=== PATIENT | male | born 1960 | race Caucasian/White ===

== ENCOUNTER → 2018-02-25 | Outpatient (CLI) | payer OTHER ==
[~2018-02-25] MED LIST: ASPIRIN325 MG PO; ATORVASTATIN CA20 MG PO; BAYER ASPIRIN PO; CEFEPIME IV; CO Q-10 100 MG1 EACH PO; CUBICIN500 MG/VIA IV; D3 PO; EXFORGE HCT 101 EAC2 PO; FISH OIL PO; FUROSEMIDE40 MG PO; HUMALOG MI100 UNIT/4 SC; LEVAQUIN500 MG PO; LEVEMIR100 UNIT/1 SC; LYRICA200 MG PO; METFORMIN HCL500 M1 PO; METOPROLOL TART25 MG PO; NOVOLOG100 UNIT/1; OMEPRAZOLE40 MG PO; PANTOPRAZOLE SO40 MG PO; VANCOMYCIN1 GM/250 M IV; WELLBUTRIN PO
[2018-02-25 15:06] LABS: INR 0.91; PROTHROMBIN TIME 13.1 seconds (11.9-14.5)
[2018-02-25 16:05] LABS: CREATININE, SERUM 1.79 mg/dL (0.72-1.25)
== END ==
LOC: DX 14:25
PROVIDERS: ATTEND Internal Medicine Infectious Disease
DX: M86.071 Acute hematogenous osteomyelitis, right ankle and foot (principal)
CPT/HCPCS: 36415; 82565; 84520; 85049; 85610; 85730

== ENCOUNTER → 2018-03-04 | Day surgery (SDC) | payer OTHER ==
--- OUTSIDE RECORDS SUMMARY | 2018-03-03 08:22 | XMS REPORT | Clinical Summary ---
Author Author [facility] Address Unknown Phone Unavailable Care Team Providers Care Undercover Agent Name Role Phone Travon Gibbs MD PCP Allergies Active Allergy Reactions Severity Noted Date Comments Vancomycin Other (See Comments) High 09/07/2016 Piperacillin-Tazobactam Other (See Comments) High 09/07/2016 Current Medications Prescription Sig. Disp. Refills Start End Date Status Date atorvastatin (LIPITOR) 40 04/08/20 Active MG tablet 16 buPROPion SR (WELLBUTRIN 04/16/20 Active SR) 150 MG 12 hr tablet 16 FLUARIX QUAD 4455-3254, 02/05/20 Active PF, syringe vaccine 16 LEVEMIR FLEXTOUCH 100 INJECY 30 UNITS 5 02/27/20 Active unit/mL (3 mL) insulin SUBCUTANEOUSLY EVERY 16 pen MORNING AND 30 UNITS SUBCUTANEOUSLY EVERY NIGHT omeprazole (PriLOSEC) 40 04/08/20 Active MG capsule 16 LYRICA 200 mg capsule 04/18/20 Active 16 BD INSULIN SYRINGE USE DIRECTED FOR 5 03/17/20 Active ULTRA-FINE 1 mL 31 gauge INSULIN 16 x 15/64" syringe insulin syringe-needle BD Insulin Syringe Active U-100 (BD INSULIN SYRINGE Ultra-Fine 1 mL 31 gauge ULTRA-FINE) 1 mL 31 gauge x 15/64" x 15/64" syringe diazePAM (VALIUM) 5 MG diazepam 5 mg tablet Active tablet lancets (ONETOUCH DELICA OneTouch Delica Lancets Active LANCETS) 33 gauge misc 33 gauge blood sugar diagnostic OneTouch Ultra Test Active strips (ONETOUCH ULTRA strips TEST) strip test strips dapagliflozin-metformin Xigduo XR 5 mg-1,000 mg Active (XIGDUO XR) 5-1,000 mg tablet,extended release tablet, IR & ER, biphasic 24hr insulin degludec (TRESIBA Tresiba FlexTouch U-200 Active FLEXTOUCH U-200) 200 200 unit/mL (3 mL) unit/mL (3 mL) insulin subcutaneous insulin pen pen insulin ASPART (NovoLOG Novolog Flexpen 100 Active Flexpen) 100 unit/mL unit/mL subcutaneous insulin pen amLODIPine (NORVASC) 10 Take 10 mg by mouth Active mg tablet daily. valsartan (DIOVAN) 320 MG Take 320 mg by mouth Active tablet daily. meropenem 1 g in sodium Infuse 1 g into a venous 1 each 0 11/13/19 03/08/20 Discontin chloride 0.9 % MBP 100 mL catheter every 8 (eight) 17 17 ued IVPB hours. aspirin 81 mg chewable Chew 1 tablet (81 mg 30 tablet 2 03/08/20 04/07/20 tablet total) daily for 30 days. 17 17 Active Problems Problem Noted Date Acute osteomyelitis of left foot (HCC) 11/02/2016 Open wound of right foot 09/23/2016 Anemia 09/12/2016 Wound abscess 09/07/2016 Encounters Date Type Specialty Care Team Description 02/02/2018 [facility] Radiology Deisy Warren MD Closed nondisplaced Encounter transverse fracture of shaft of left tibia with routine healing 01/25/2018 Transcribe Access Deisy Warren MD Closed nondisplaced Orders transverse fracture of shaft of left tibia with routine healing (Primary Dx) 06/18/2017 Office Visit Wound Care Dale Lucio, DPMilton Ulcer of left foot, with fat layer exposed (Primary Dx) 06/16/2017 [facility] Radiology Dale Lucio DPMilton Ulcer of left heel, with Encounter fat layer exposed 06/16/2017 [facility] Radiology Dale Lucio DPM Ulcer of left heel, with Encounter fat layer exposed 05/17/2017 Procedure Pass Radiology 05/17/2017 Procedure Pass Radiology 05/17/2017 Transcribe Access Dale Lucio DPMilton Ulcer of left heel, with Orders fat layer exposed (Primary Dx) 03/04/2017 Anesthesia General Surgery Erik Montoya MD Event 03/04/2017 Procedure Pass General Surgery 03/04/2017 Surgery General Surgery Niraj Hall MD angiogram , Left Lower Extremity, aortagram, balloon angioplasty of SFA left leg 03/02/2017 Procedure Pass General Internal Medicine 03/01/2017 [facility] General Internal Medicine Marie Gutierrez Mik, Acute osteomyelitis of - Encounter DO left foot (Primary Dx) 03/08/2017 Hunter Melendez MD after 03/02/2017 Immunizations Name Dates Previously Given Next Due FLUCELVAX QUAD PF (0.5mL 03/05/2017 syringe) Family History Medical History Relation Name Comments Heart disease Mother Relation Name Status Comments Mother Social History Tobacco Use Types Packs/Day Years Used Date Former Smoker 2 27 Quit: 2006 Alcohol Use Drinks/Week oz/Week Comments No Sex Assigned at Date Recorded Not on file Last Filed Vital Signs Vital Sign Reading Time Taken Blood Pressure 163/84 03/08/2017 9:25 AM [employer] Pulse 86 03/08/2017 9:25 AM [employer] Temperature 36.2 C (97.2 F) 03/08/2017 9:25 AM [employer] Respiratory Rate 18 03/08/2017 9:25 AM [employer] GROUP [employer] Oxygen Saturation 99% 03/08/2017 9:25 AM [employer]ING [employer]ER Inhaled Oxygen - - Concentration Weight 98.3 kg (216 lb 12.8 oz) 03/08/2017 5:00 AM [employer]ING GROUP [employer] Height 190.5 cm (6' 3") 03/02/2017 3:25 PM [employer] Body Mass Index 27.1 03/08/2017 5:00 AM [employer]ING GROUP LE[employer]ER Plan of Treatment Health Maintenance Due Date Last Done Comments SHINGRIX VACCINE (#1) 2012 INFLUENZA VACCINE 11/24/2017 03/05/2017, 03/05/2017, 02/24/2014 COLON CANCER SCREENING 08/04/2026 08/04/2016 Implants Implanted Type Area Commercial Real Estate Attorney Device Expiration Model / Identifier Date Serial / Lot Device Vasclr Clsr Baln Cath 10ml Cardiovasc Right: CARDINAL 12/24/2018 [id number] / Lkng Syr 6fr 7fr [facility] [id number] Implants [id number] Implanted: Qty: 1 on 03/04/2017 by Niraj Hall MD Dressing Wnd 4x5in Mtrx 2lyr - Human Right: [employer]TE[employer] 12/24/2017 [id number] / [id number] Tissue Foot LIFESCIENCE / Implanted: Qty: 1 on 09/16/2016 by Implants RECON [id number] Foteh, Abeer Mufid, DPM 23 Graft Soft-Tissue Epifix 2x3cm - Human Left: Foot [employer] 07/25/2020 GS [id number] / [id number] - [id number] Tissue INC [id number] Implanted: Qty: 1 on 09/16/2016 by Implants [id number] / Dale Lucio, DPM [id number] Allograft Epifix Micronized 160mg - Human Right: [employer] 03/26/2021 EI [id number] / [id number] - [id number] Tissue Foot INC [id number] Implanted: Qty: 1 on 11/06/2016 by Implants [id number] / TirsoteDale jiangd, DPM [id number] Explanted Type Area Commercial Real Estate Attorney Device Expiration Model / Identifier Date Serial / Lot Catheter Angio Supercharger Repair Supervisor Ii 5fr Surgical Left: [facility] [id number] 0.038in 65cm Hf Contra-L - Implants; Groin INTERVENTION / [id number] Expanders; VASCULAR MARIA DEL CARMEN / Implanted: Extenders; Explanted: 03/04/2017 by Davy Hall MD (Quantity not on file) Wires Procedures Procedure Name Priority Date/Time Associated Diagnosis Comments CT LOWER EXTREMITY WO Routine 02/02/2018 Closed nondisplaced Results for this CONTRAST LEFT 12:51 PM CDT transverse fracture of procedure are in the shaft of left tibia with results section. routine healing GRAM STAIN Routine 06/18/2017 Results for this 4:35 PM [employer] procedure are in the results section. ANAEROBIC CULTURE Routine 06/18/2017 Results for this 4:35 PM [employer] procedure are in the results section. AEROBIC CULTURE Routine 06/18/2017 Results for this 4:35 PM [employer]ER procedure are in the results section. MRI LOWER EXTREMITY JOINT Routine 06/16/2017 Ulcer of left heel, with Results for this WO CONTRAST LEFT 9:26 AM ENG[employer]ERING [employer] LEADER fat layer exposed procedure are in the results section. MRI FOOT WO CONTRAST LEFT Routine 06/16/2017 Ulcer of left heel, with Results for this 9:25 AM ENG[employer]ING [employer] LE[employer]ER fat layer exposed procedure are in the results section. XR CHEST 1 VW PORTABLE STAT 03/08/2017 Results for this 8:49 AM ENG[employer]ERING GROUP LEADER procedure are in the results section. POC GLUCOSE Routine 03/08/2017 Results for this 6:47 AM [employer]ING [employer] LE[employer]ER procedure are in the results section. POC GLUCOSE Routine 03/07/2017 Results for this 9:08 PM [employer]ER procedure are in the results section. POC GLUCOSE Routine 03/07/2017 Results for this 4:14 PM [employer] LE[employer]ER procedure are in the results section. POC GLUCOSE Routine 03/07/2017 Results for this 12:45 PM [employer]ING [employer] LE[employer]ER procedure are in the results section. POC GLUCOSE Routine 03/07/2017 Results for this 6:34 AM ENG[employer]ERING GROUP LEADER procedure are in the results section. POC GLUCOSE Routine 03/06/2017 Results for this 9:10 PM [employer]ING GROUP LEADER procedure are in the results section. POC GLUCOSE Routine 03/06/2017 Results for this 4:02 PM [employer]ING [employer] LE[employer]ER procedure are in the results section. POC GLUCOSE Routine 03/06/2017 Results for this 11:13 AM ENG[employer]ERING GROUP LEADER procedure are in the results section. POC GLUCOSE Routine 03/06/2017 Results for this 7:27 AM ENG[employer]ERING GROUP LEADER procedure are in the results section. POC GLUCOSE Routine 03/05/2017 Results for this 8:12 PM ENG[employer]ERING GROUP LEADER procedure are in the results section. POC GLUCOSE Routine 03/05/2017 Results for this 3:32 PM ENG[employer]ERING GROUP LEADER procedure are in the results section. POC GLUCOSE Routine 03/05/2017 Results for this 11:39 AM ENGINEERING GROUP LEADER procedure are in the results section. POC GLUCOSE Routine 03/05/2017 Results for this 7:33 AM ENGINEERING GROUP LEADER procedure are in the results section. ZZESTIMATED GFR Routine 03/05/2017 Results for this 4:55 AM ENGINEERING GROUP LEADER procedure are in the results section. BASIC METABOLIC PANEL Routine 03/05/2017 Results for this 4:55 AM ENGINEERING GROUP LEADER procedure are in the results section. HC COMPLETE BLD COUNT Routine 03/05/2017 Results for this W/AUTO DIFF 4:55 AM ENG[employer]ERING GROUP LEADER procedure are in the results section. POC GLUCOSE Routine 03/04/2017 Results for this 8:14 PM [employer]ING [employer] LEADER procedure are in the results section. POC GLUCOSE Routine 03/04/2017 Results for this 6:34 PM ENG[employer]ING GROUP LEADER procedure are in the results section. POC GLUCOSE Routine 03/04/2017 Results for this 5:15 PM ENG[employer]ERING GROUP LEADER procedure are in the results section. CV HYBRID OR FLUOROSCOPY Routine 03/04/2017 Results for this 3:35 PM ENGINEERING GROUP LEADER procedure are in the results section. XR CHEST 1 VW PORTABLE Routine 03/04/2017 Results for this 2:37 PM [employer]ERING GROUP LEADER procedure are in the results section. POC GLUCOSE Routine 03/04/2017 Results for this 11:20 AM ENGINEERING GROUP LEADER procedure are in the results section. HC CATH DUAL LUMEN PICC Routine 03/04/2017 Results for this 11:19 AM ENG[employer]ERING GROUP LEADER procedure are in the results section. HC US GUIDED VASCULAR Routine 03/04/2017 Results for this ACCESS 11:19 AM ENG[employer]ERING GROUP LEADER procedure are in the results section. HC CVL PICC INSERT 5 YRS Routine 03/04/2017 Results for this OR > 11:19 AM ENG[employer]ERING GROUP LEADER procedure are in the results section. POC GLUCOSE Routine 03/04/2017 Results for this 7:21 AM ENG[employer]ERING GROUP LEADER procedure are in the results section. ZZESTIMATED GFR Routine 03/04/2017 Results for this 6:22 AM ENGINEERING GROUP LEADER procedure are in the results section. TYPE AND SCREEN Routine 03/04/2017 Results for this 6:22 AM ENG[employer]ERING GROUP LEADER procedure are in the results section. BASIC METABOLIC PANEL Routine 03/04/2017 Results for this 6:22 AM ENGINEERING GROUP LEADER procedure are in the results section. HC COMPLETE BLD COUNT Routine 03/04/2017 Results for this W/AUTO DIFF 6:22 AM ENGINEERING GROUP LEADER procedure are in the results section. PROTHROMBIN TIME WITH INR Routine 03/04/2017 Results for this 6:22 AM ENG[employer]ERING GROUP LEADER procedure are in the results section. PARTIAL THROMBOPLASTIN Routine 03/04/2017 Results for this TIME (PTT) 6:22 AM ENG[employer]ERING GROUP LEADER procedure are in the results section. ECG 12-LEAD Routine 03/04/2017 Results for this 4:34 AM ENGINEERING GROUP LEADER procedure are in the results section. POC GLUCOSE Routine 03/03/2017 Results for this 9:03 PM ENG[employer]ERING GROUP LEADER procedure are in the results section. POC GLUCOSE Routine 03/03/2017 Results for this 4:12 PM ENG[employer]ERING GROUP LEADER procedure are in the results section. POC GLUCOSE Routine 03/03/2017 Results for this 11:28 AM ENG[employer]ING GROUP LEADER procedure are in the results section. POC GLUCOSE Routine 03/03/2017 Results for this 7:25 AM ENG[employer]ING GROUP LEADER procedure are in the results section. ZZESTIMATED GFR Routine 03/03/2017 Results for this 6:37 AM ENG[employer]ERING GROUP LEADER procedure are in the results section. BASIC METABOLIC PANEL Routine 03/03/2017 Results for this 6:37 AM ENG[employer]ERING GROUP LEADER procedure are in the results section. HC COMPLETE BLD COUNT Routine 03/03/2017 Results for this W/AUTO DIFF 6:37 AM ENG[employer]ERING GROUP LEADER procedure are in the results section. HEMOGLOBIN A1C Routine 03/03/2017 Results for this 6:37 AM ENGINEERING GROUP LEADER procedure are in the results section. XR FOOT 3 VW BILATERAL Routine 03/02/2017 Results for this 9:21 PM [employer]ING [employer] LEADER procedure are in the results section. ANAEROBIC CULTURE Routine 03/02/2017 Results for this 8:59 PM [employer]ING [employer] LEADER procedure are in the results section. GRAM STAIN Routine 03/02/2017 Results for this 8:59 PM ENG[employer]ERING GROUP LEADER procedure are in the results section. AEROBIC CULTURE Routine 03/02/2017 Results for this 8:59 PM ENG[employer]ING [employer] LEADER procedure are in the results section. POC GLUCOSE Routine 03/02/2017 Results for this 8:36 PM [employer]ING [employer] LEADER procedure are in the results section. US DUPLEX ARTERIAL LOWER Routine 03/02/2017 Results for this EXTREMITY BILATERAL 5:48 PM [employer]ING [employer] LEADER procedure are in the results section. POC GLUCOSE Routine 03/02/2017 Results for this 3:32 PM [employer]ING [employer] LEADER procedure are in the results section. POC GLUCOSE Routine 03/02/2017 Results for this 12:09 PM ENG[employer]ERING GROUP LEADER procedure are in the results section. POC GLUCOSE Routine 03/02/2017 Results for this 7:22 AM ENGINEERING GROUP LEADER procedure are in the results section. MANUAL DIFFERENTIAL Routine 03/02/2017 Results for this 6:06 AM ENG[employer]ERING GROUP LEADER procedure are in the results section. ZZESTIMATED GFR Routine 03/02/2017 Results for this 6:06 AM ENG[employer]ERING GROUP LEADER procedure are in the results section. BASIC METABOLIC PANEL Routine 03/02/2017 Results for this 6:06 AM ENG[employer]ERING GROUP LEADER procedure are in the results section. CBC WITH PLATELET AND Routine 03/02/2017 Results for this DIFFERENTIAL 6:06 AM ENGINEERING GROUP LEADER procedure are in the results section. MRI FOOT WO CONTRAST LEFT STAT 03/02/2017 Results for this 3:59 AM ENGINEERING GROUP LEADER procedure are in the results section. LACTIC ACID LEVEL Timed 03/02/2017 Results for this 12:16 AM ENG[employer]ERING GROUP LEADER procedure are in the results section. after 03/02/2017 Results * CT Lower Extremity Wo Contrast Left (02/02/2018 12:51 PM) Narrative Performed At EXAMINATION:CT LOWER EXTREMITY WO CONTRAST LEFT HM [facility] CLINICAL HISTORY:S82.225D Nondisplaced transverse fracture of shaft of left tibiasubsequent encounter for closed fracture with routine healing, S82.225D TECHNIQUE: Multiple axial images of the right lower extremity were obtained without contrast. CT imaging was performed with iterative reconstruction technique and/or automated exposure control to reduce radiation dose. COMPARISON:MRI dated 06/16/2017 FINDINGS: CT imaging of the midfoot and hindfoot demonstrates external fixation device with pins in the calcaneus. The talus has either been resected or now has completely collapsed and is fragmented. Severe Charcot arthropathy of the hindfoot and midfoot. If an arthrodesis has been performed then no bony bridging is noted. Erosions, sclerosis and bony fragmentation may represent the sequelae of a neuropathic arthropathy. Periostitis of the distal tibia and fibula. Septic arthritis or osteomyelitis cannot be excluded. IMPRESSION: 1.External fixation device with resection of the talus or significant fragmentation that has progressed compared to the prior MRI dated 06/16/2017. 2.If an arthrodesis has been performed then no osseous union is identified. 3.Advanced and severe neuropathic Charcot arthropathy. Periostitis of the distal tibia and fibula is nonspecific and erosions, bony fragmentation and changes in the hindfoot and midfoot may be secondary to the Charcot arthropathy although osteomyelitis and infection cannot be excluded. [facility]-[id number] Procedure Note Hm Interface, Radiology Results Incoming - 02/02/2018 1:07 PM CDT EXAMINATION: CT LOWER EXTREMITY WO CONTRAST LEFT CLINICAL HISTORY: S82.225D Nondisplaced transverse fracture of shaft of left tibia subsequent encounter for closed fracture with routine healing, S82.225D TECHNIQUE: Multiple axial images of the right lower extremity were obtained without contrast. CT imaging was performed with iterative reconstruction technique and/or automated exposure control to reduce radiation dose. COMPARISON: MRI dated 06/16/2017 FINDINGS: CT imaging of the midfoot and hindfoot demonstrates external fixation device with pins in the calcaneus. The talus has either been resected or now has completely collapsed and is fragmented. Severe Charcot arthropathy of the hindfoot and midfoot. If an arthrodesis has been performed then no bony bridging is noted. Erosions, sclerosis and bony fragmentation may represent the sequelae of a neuropathic arthropathy. Periostitis of the distal tibia and fibula. Septic arthritis or osteomyelitis cannot be excluded. IMPRESSION: 1. External fixation device with resection of the talus or significant fragmentation that has progressed compared to the prior MRI dated 06/16/2017. 2. If an arthrodesis has been performed then no osseous union is identified. 3. Advanced and severe neuropathic Charcot arthropathy. Periostitis of the distal tibia and fibula is nonspecific and erosions, bony fragmentation and changes in the hindfoot and midfoot may be secondary to the Charcot arthropathy although osteomyelitis and infection cannot be excluded. [id number] Performing Organization Address City/[facility]/Zipcode Phone Number [facility] [address] [place] [address] * Aerobic culture (06/18/2017 4:35 PM) Only the most recent of 2 results within the time period is included. Aerobic culture isolate Mixed mariposa- more than 3 [facility] DEPARTMENT OF organisms isolated. PATHOLOGY AND Consider resubmitting specimen GENOMIC MEDICINE if clinically indicated. Comment: Specimen Information Specimen Source: Ulcer Specimen Site: Left Foot Specimen Ulcer Performing Organization Address [facility]/Zipcode Phone Number [facility] DEPARTMENT OF [address] [place] [address] PATHOLOGY AND GENOMIC MEDICINE * Gram stain (06/18/2017 4:35 PM) Only the most recent of 2 results within the time period is included. Gram stain isolate Many WBC's [facility] DEPARTMENT OF No organisms seen PATHOLOGY AND Comment: GENOMIC MEDICINE Specimen Information Specimen Source: Ulcer Specimen Site: Left Foot Specimen Ulcer Performing Organization Address [facility] Phone Number [facility] DEPARTMENT OF [address] [place] [id number] PATHOLOGY AND GENOMIC MEDICINE * Anaerobic culture (06/18/2017 4:35 PM) Only the most recent of 2 results within the time period is included. Anaerobic culture isolate No anaerobic organisms [facility] DEPARTMENT OF isolated. PATHOLOGY AND Comment: GENOMIC MEDICINE Specimen Information Specimen Source: Ulcer Specimen Site: Left Foot Specimen Ulcer Performing Organization Address [facility] [place] Number [facility] DEPARTMENT OF [address] [place] [address] PATHOLOGY AND GENOMIC MEDICINE * MRI Lower Extremity Joint Wo Contrast Left (06/16/2017 9:26 AM) Narrative Performed At EXAMINATION:MRI LOWER EXTREMITY JOINT WO CONTRAST LEFT HM [facility] CLINICAL HISTORY:L97.422 Non-pressure chronic ulcer of left heel and midfoot with fat layer exposed, L97.422 COMPARISON:None. TECHNIQUE:Multiplanar and multisequence T1 and T2-weighted images of the foot are submitted which were performed without gadolinium. IMPRESSION: 1.There is small amount of T2 weighted signal identified in the soft tissues inferior to the calcaneus at the level of a tiny calcaneal spur. This is immediately inferior to the plantar fascia. There is no evidence of plantar fascial thickening. This may correlate with the area of patient ulcer. There is no abnormal signal within the underlying calcaneus to indicate osteomyelitis. 2.There is a severe Charcot joint with a large ankle joint effusion. Because of the presence of effusion, septic joint cannot be excluded. Scattered abnormal signal throughout the tarsal bones is compatible with severe Charcot joint changes. 3.There is a soft tissue ulcer along the very medial inferomedial foot well seen on series 4 image 3. This fluid in this ulcer appears to connect with effusion and therefore the effusion may be infected. Small amount of subcutaneous edema is also noted. While the signal changes in the tarsal bones are compatible with neuropathy,osteomyelitis cannot be entirely excluded. A moderate amount of fluid signal is seen in the medial foot soft tissues. Whether this is infected or not cannot be ascertained. [id number] Procedure Note Hm Interface, Radiology Results Incoming - 06/18/2017 9:04 PM ENGINEERING GROUP LEADER EXAMINATION: MRI LOWER EXTREMITY JOINT WO CONTRAST LEFT CLINICAL HISTORY: L97.422 Non-pressure chronic ulcer of left heel and midfoot with fat layer exposed, L97.422 COMPARISON: None. TECHNIQUE: Multiplanar and multisequence T1 and T2-weighted images of the foot are submitted which were performed without gadolinium. IMPRESSION: 1. There is small amount of T2 weighted signal identified in the soft tissues inferior to the calcaneus at the level of a tiny calcaneal spur. This is immediately inferior to the plantar fascia. There is no evidence of plantar fascial thickening. This may correlate with the area of patient ulcer. There is no abnormal signal within the underlying calcaneus to indicate osteomyelitis. 2. There is a severe Charcot joint with a large ankle joint effusion. Because of the presence of effusion, septic joint cannot be excluded. Scattered abnormal signal throughout the tarsal bones is compatible with severe Charcot joint changes. 3. There is a soft tissue ulcer along the very medial inferomedial foot well seen on series 4 image 3. This fluid in this ulcer appears to connect with effusion and therefore the effusion may be infected. Small amount of subcutaneous edema is also noted. While the signal changes in the tarsal bones are compatible with neuropathy, osteomyelitis cannot be entirely excluded. A moderate amount of fluid signal is seen in the medial foot soft tissues. Whether this is infected or not cannot be ascertained. [id number] Performing Organization Address City/State/Zipcode Phone Number [facility] [address] [place] [address] * MRI Foot Wo Contrast Left (06/16/2017 9:25 AM) Only the most recent of 2 results within the time period is included. Narrative [facility] Procedure: MRI FOOT WO CONTRAST LEFT REFERRING PHYSICIAN: DALE LUCIO HISTORY: L9.422 Non-pressure chronic ulcer of left heel and midfoot with fat layer exposed, L9.422 COMPARISON: None TECHNIQUE: Multiplanar and multisequence were obtained of the left midfoot and forefoot without intravenous contrast. FINDINGS: Abnormal low T1 signal intensities are seen of the navicular bones and to a lesser extent along the medial aspect of the cuboid bone and at the much lesser extent at the base of the second metatarsal and third metatarsal. Destruction and abnormal T1 signal intensities are also seen of the navicular bone and of the talar head. Associated marrow edema is seen. Findings worrisome for osteomyelitis changes. Associated surrounding soft tissue swelling is also noted. Limited evaluation of the ligaments and tendons of the forefoot is unremarkable. IMPRESSION: Findings worrisome for osteomyelitis changes of the left foot, more significant involving the midfoot, as described in the body of the report. [id number] Procedure Note Interface, Radiology Results Incoming - 06/16/2017 9:49 AM ENGINEERING GROUP LEADER Procedure: MRI FOOT WO CONTRAST LEFT REFERRING PHYSICIAN: DALE LUCIO HISTORY: L9.422 Non-pressure chronic ulcer of left heel and midfoot with fat layer exposed, L97.422 COMPARISON: None TECHNIQUE: Multiplanar and multisequence were obtained of the left midfoot and forefoot without intravenous contrast. FINDINGS: Abnormal low T1 signal intensities are seen of the navicular bones and to a lesser extent along the medial aspect of the cuboid bone and at the much lesser extent at the base of the second metatarsal and third metatarsal. Destruction and abnormal T1 signal intensities are also seen of the navicular bone and of the talar head. Associated marrow edema is seen. Findings worrisome for osteomyelitis changes. Associated surrounding soft tissue swelling is also noted. Limited evaluation of the ligaments and tendons of the forefoot is unremarkable. IMPRESSION: Findings worrisome for osteomyelitis changes of the left foot, more significant involving the midfoot, as described in the body of the report. [id number] Performing Organization Address [facility] Facility[facility] Phone Number [facility] [address] [place] [address] * XR Chest 1 Vw Portable (03/08/2017 8:49 AM) Only the most recent of 2 results within the time period is included. Narrative Performed At EXAMINATION:XR CHEST 1 VW PORTABLE [facility] CLINICAL HISTORY:UVC Line Placement, TIP CONFIRMATION NO BLOOD RETURN XR CHEST 1 VW PORTABLEimages are submitted COMPARISON:03/04/2017 FINDINGS: The PICC line has the tip in the superior vena cava. There are changes of prior median sternotomy. The cardiac silhouette is normal in size. The lung zones are clear. Is no pleural effusion or pneumothorax. IMPRESSION: 1. The PICC line has the tip in the superior vena cava. 2. The lung zones are clear. [id number] Procedure Note Hm Interface, Radiology Results Incoming - 03/08/2017 8:54 AM ENGINEERING GROUP LEADER EXAMINATION: XR CHEST 1 VW PORTABLE CLINICAL HISTORY: UVC Line Placement, TIP CONFIRMATION NO BLOOD RETURN XR CHEST 1 VW PORTABLE images are submitted COMPARISON: 03/04/2017 FINDINGS: The PICC line has the tip in the superior vena cava. There are changes of prior median sternotomy. The cardiac silhouette is normal in size. The lung zones are clear. Is no pleural effusion or pneumothorax. IMPRESSION: 1. The PICC line has the tip in the superior vena cava. 2. The lung zones are clear. [facility]-[id number] Performing Organization Address [facility] Facilitycook Phone Number [facility] [address] [place] [address] * POC glucose (03/08/2017 6:47 AM) Only the most recent of 26 results within the time period is included. POC glucose 153 (H) 65 - 100 mg/dL [facility] DEPARTMENT OF Comment: PATHOLOGY AND Meter ID: [id number] GENOMIC MEDICINE Post Anesthesia Nurse: Susanna Sierra Performing Organization Address City/[facility]/Zipcode Phone Number [facility] DEPARTMENT OF [address] [place] [address] PATHOLOGY AND GENOMIC MEDICINE * Estimated GFR (03/05/2017 4:55 AM) Only the most recent of 4 results within the time period is included. GFR Non Af Amer 88 mL/min/1.73 m2 [facility] DEPARTMENT OF PATHOLOGY AND GENOMIC MEDICINE GFR Af Amer >90 mL/min/1.73 m2 [facility] DEPARTMENT OF Comment: PATHOLOGY AND Chronic kidney disease: <60 GENOMIC MEDICINE mL/min/1.73m2 Kidney failure: <15 mL/min/1.73m2 The estimated GFR is calculated from the IDMS-traceable Modification of Diet in Renal Disease Equation. The accuracy of the calculation is poor when the creatinine is normal. Calculated values >90 mL/min/1.73m2 are not reported. This equation has not been validated in children (<18 years), women, the elderly (>70 years), or ethnic groups other than Caucasians and Americans. Specimen Plasma specimen Performing Organization Address City/State/Zipcode Phone Number [place] [phone] [place] [address] PATHOLOGY AND [facility]ICINE * CBC with platelet and differential (03/05/2017 4:55 AM) Only the most recent of 4 results within the time period is included. WBC 8.1 4.2 - 11.0 k/uL [facility] DEPARTMENT OF PATHOLOGY AND GENOMIC MEDICINE RBC 3.80 (L) 4.04 - 5.86 m/uL [facility] PATHOLOGY AND GENOMIC MEDICINE HGB 10.2 (L) 13.0 - 17.3 g/dL [facility] PATHOLOGY AND GENOMIC MEDICINE HCT 30.4 (L) 34.0 - 45.0 % [facility] DEPARTMENT PATHOLOGY AND GENOMIC MEDICINE MCV 80.0 80.0 - 98.0 fL [facility] DEPARTMENT OF PATHOLOGY AND GENOMIC MEDICINE MCH 26.8 (L) 27.0 - 34.0 pg [facility] DEPARTMENT OF PATHOLOGY AND GENOMIC MEDICINE MCHC 33.6 31.5 - 36.5 g/dL [facility] DEPARTMENT PATHOLOGY AND GENOMIC MEDICINE RDW - SD 43.2 37.0 - 51.0 fL [facility] DEPARTMENT PATHOLOGY AND GENOMIC MEDICINE MPV 9.2 7.4 - 10.4 fL [facility] DEPARTMENT OF PATHOLOGY AND GENOMIC MEDICINE Platelet count 403 (H) 150 - 400 k/uL [facility] DEPARTMENT PATHOLOGY AND GENOMIC MEDICINE Nucleated RBC 0.00 /100 WBC [facility] DEPARTMENT OF PATHOLOGY AND GENOMIC MEDICINE Neutrophils 69.0 (H) 36.0 - 66.0 % [facility] DEPARTMENT OF PATHOLOGY AND GENOMIC MEDICINE Lymphocytes 19.1 (L) 24.0 - 44.0 % [facility] DEPARTMENT OF PATHOLOGY AND GENOMIC MEDICINE Monocytes 9.1 (H) 0.0 - 6.0 % [facility] DEPARTMENT OF PATHOLOGY AND GENOMIC MEDICINE Eosinophils 1.7 0.0 - 6.0 % [facility] DEPARTMENT OF PATHOLOGY AND GENOMIC MEDICINE Basophils 0.4 0.0 - 1.2 % [facility] DEPARTMENT OF PATHOLOGY AND GENOMIC MEDICINE Immature granulocytes 0.7 0.0 - 1.0 % [facility] OF PATHOLOGY AND GENOMIC MEDICINE Specimen Blood Performing Organization Address City/[facility] Facilitycode Phone Number [address] [place] [address] PATHOLOGY AND GENOMIC MEDICINE * Basic metabolic panel (03/05/2017 4:55 AM) Only the most recent of 4 results within the time period is included. Sodium 137 135 - 150 mEq/L [facility] DEPARTMENT OF PATHOLOGY AND GENOMIC MEDICINE Potassium 3.4 (L) 3.5 - 5.0 mEq/L [facility] DEPARTMENT OF PATHOLOGY AND GENOMIC MEDICINE Chloride 101 100 - 109 mEq/L [facility] DEPARTMENT OF PATHOLOGY AND GENOMIC MEDICINE CO2 29 24 - 32 mmol/L [facility] DEPARTMENT OF PATHOLOGY AND GENOMIC MEDICINE Anion gap 7 7 - 15 mEq/L [facility] DEPARTMENT OF Comment: PATHOLOGY AND Starting from July [facility] MEDICINE , anion gap calculation no longer incorporates potassium. Please note the change. BUN 8 7 - 18 mg/dL [facility] DEPARTMENT OF PATHOLOGY AND GENOMIC MEDICINE Creatinine 0.9 0.8 - 1.5 mg/dL [facility] DEPARTMENT OF PATHOLOGY AND GENOMIC MEDICINE Glucose 112 (H) 65 - 100 mg/dL [facility] DEPARTMENT OF PATHOLOGY AND GENOMIC MEDICINE Calcium 8.2 (L) 8.6 - 10.7 mg/dL [facility] DEPARTMENT OF PATHOLOGY AND GENOMIC MEDICINE Specimen Plasma specimen Performing Organization Address City/[facility] Facilitycode Phone Number [address] [place] [address] PATHOLOGY AND GENOMIC MEDICINE * Hybrid or fluoroscopy (03/04/2017 3:35 PM) Narrative Performed At See operative report for the same day * PICC INSERTION (03/04/2017 11:19 AM) Narrative Performed At Daphne Flanagan 03/04/2017 11:19 AM PICC insertion Date/Time: 03/04/2017 10:45 AM Performed by: DAPHNE FLANAGAN Authorized by: HUNTER MELENDEZ Consent: Consent obtained:Verbal and written Consent given by:Patient Risks discussed: arterial puncture, incorrect placement, nerve damage, bleeding, infection, superficial thrombus and deep vein thrombus Alternatives discussed:No treatment, delayed treatment and alternative treatment [place] protocol: Procedure explained and questions answered to patient or proxy's satisfaction: yes Relevant documents present and verified: yes Test results available and properly labeled: yes Imaging studies available: yes Required blood products, implants, devices, and special equipment available: yes Site/side marked: yes Immediately prior to procedure, a time out was called: yes Patient identity confirmed:Verbally with patient, arm band, provided demographic data and hospital-assigned identification number Pre-procedure details: Hand hygiene: Hand hygiene performed prior to insertion Sterile barrier technique: All elements of maximal sterile technique followed Skin preparation:ChloraPrep Skin preparation agent: Skin preparation agent completely dried prior to procedure Anesthesia (see MAR for exact dosages): Anesthesia method:Local infiltration Local anesthetic:Lidocaine 1% w/o epi Route of administration:Subcutaneous PICC Line Placement Details (Will create an LDA): Extremity Cirumference Upper (cm):43 Extremity Circumference Forearm (cm):30 Extremity Circumference Site:35 Patient position:Flat Vessel Size (mm):4 Indication:Known mcc IV therapy Location:Right basilic Site selection rationale:Dominant arm, hx of PICCs, last placed in left arm Device Type:Valved Catheter size:5 Fr PICC Characteristics: Catheter Brand:PowerPICC Catheter with Sherlock 3 CG Tip Positioning System External Catheter Length (cm):0 Internal Catheter Length (cm):44 Total Catheter Length (cm):44 Catheter Lot Number:[id number] Catheter Expiration Date:02/23/1918 Micro-Introducer Lot Number:[id number] Micro-Introducer Expiration Date:02/23/2017 Procedure Details: Landmarks identified: yes Ultrasound guidance: yes Sterile ultrasound techniques: Sterile gel and sterile probe covers were used Number of attempts:1 Number of PICC kits used during procedure:1 Purpose of procedure:PICC Placement Successful PICC Placement: Yes Patency/Placement:Flushes without difficulty, flushed with 10 mL normal saline, positive blood return and injection cap placed (3 CG CONFIRMATION) PICC placed utlizing ultrasound-guided Modified Seldinger Technique: Yes Dressing/Securement:Gauze applied, catheter securement device and transparent semipermeable dressing Blood Loss Amount:Less than 20 mL Post-Procedure Details: Post-procedure:Dressing applied Name of provider who confirmed tip placement::Daphne Flanagan RN, PICC nurse confirmed with 3 CG technology Patient tolerance of procedure:Tolerated well, no immediate complications Comments: Difficulty placing micro-introducer (vein dilator) into the vein. Pt with hx of multiple PICCs, could be scar tissue. Otherwise no complications noted. Pt denied pain/discomfort. Teaching performed on PICC with clamps. Pt able to clamp and unclamp. Pt demonstrated and verbalized understanding. Patient with wallet care and PICC nurse extension for any home questions that may arise. Report to Lorene Aponte RN, patient's primary bedside nurse. * Partial thromboplastin time, activated (03/04/2017 6:22 AM) PTT 33.2 23.0 - 36.0 sec [facility] DEPARTMENT OF Comment: PATHOLOGY AND PTT therapeutic range for GENOMIC MEDICINE unfractionated heparin is 61.0-112.0 seconds which corresponds to Anti-Xa 0.3-0.7 U/ml. Note:Change in Panic Value The PTT Panic Value is changing from 110 sec. to 100 sec. due to new instrumentation and reagents. Correlation studies have been performed to validate this result. Specimen Blood Performing Organization Address City/[facility] Facilitycode Phone Number [facility] [address] [facility] [place] [id number] PATHOLOGY AND [facility] MEDICINE * Prothrombin time with INR (03/04/2017 6:22 AM) Prothrombin time 14.0 12.0 - 15.0 sec [facility] DEPARTMENT OF PATHOLOGY AND GENOMIC MEDICINE INR 1.07 0.92 - 1.12 [facility] DEPARTMENT OF Comment: PATHOLOGY AND For patients on anticoagulant GENOMIC MEDICINE therapy, reference ranges below: Indication: INR Value Treatment of Venous Thrombosis, 2.0-3.0 pulmonary emboli, or prophylaxis of a venous thrombosis, or systemic emboli. High dose, high risk patients 3.0-4.5 with mechanical valves. NOTE:INR values over 3.0 are sometimes associated with gastrointestinal hemorrhage, especially values over 4.0. Specimen Blood Performing Organization Address City/[facility]/Zipcode Phone Number [facility] [address] [place] [address] PATHOLOGY AND [facility] MEDICINE * Type and screen (03/04/2017 6:22 AM) ABO grouping A [facility] DEPARTMENT OF PATHOLOGY AND GENOMIC MEDICINE Rh type POS [facility] DEPARTMENT OF PATHOLOGY AND GENOMIC MEDICINE Antibody screen (gel) NEG [facility] DEPARTMENT OF PATHOLOGY AND GENOMIC MEDICINE Specimen Blood Performing Organization Address City/[facility] Phone Number [facility] DEPARTMENT OF [address] [place] [address] PATHOLOGY AND GENOMIC MEDICINE * ECG 12 lead (03/04/2017 4:34 AM) Ventricular rate 72 [facility] Atrial rate 72 [facility] NV interval 152 [facility] QRSD interval 88 [facility] QT interval 404 [facility] QTC interval 442 [facility] P axis 1 45 [facility] QRS axis 1 -12 [facility] T wave axis -56 [facility] EKG impression Normal sinus rhythm-Inferior [facility] infarct (cited on or before 08-SEP-2016)-Cannot rule out Anterior infarct , age undetermined-ST & T wave abnormality, consider lateral ischemia-Prolonged QT-Abnormal ECG-In automated comparison with ECG of 02-NOV-2016 14:42,-T wave inversion now evident in Inferior leads- Performing Organization Address City/[facility] Phone Number [facility] MUSE [address] [place] [address] * Hemoglobin A1c (03/03/2017 6:37 AM) Hemoglobin A1C 5.9 4.0 - 6.0 % [facility] DEPARTMENT OF Comment: PATHOLOGY AND GENOMIC MEDICINE Less than 6% - Goal of therapy for Type II Diabetes Less than 7%-Goal of therapy for Type I Diabetes Less than 8%-Accepta ble control for Type I or Type II Diabetes Greater than 8%-Unacceptabl e control; action indicated. 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 The talonavicular and navicular cuneiform joints are unremarkable with no erosions. Calcification is present in the anterior and posterior tibial arteries. There are no signs of a foreign body. The proximal metatarsal remnants are shorter when compared to the foot x-ray from 11/06/2016, but otherwise unremarkable. Left foot: The arch is fallen with degenerative narrowing of the talar tarsal joints. There is dorsal subluxation of the great toe. There is pressure erosion from the distal tibia articular surface presentinto the posterior dorsal aspect of the talus and dorsal cortex of the os calcis. Small degenerative intrusion cysts are present in the cortical surface of the dorsal aspect and rostrum of the talus. The navicular bone is not recognizable. There is lateral subluxation of cuneiform and cuboid bones. 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 There is osteolysis of the distal first metatarsal articular surface but no plain film evidence of acute osteomyelitis. 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 The talonavicular and navicular cuneiform joints are unremarkable with no erosions. Calcification is present in the anterior and posterior tibial arteries. There are no signs of a foreign body. The proximal metatarsal remnants are shorter when compared to the foot x-ray from 11/06/2016, but otherwise unremarkable. Left foot: The arch is fallen with degenerative narrowing of the talar tarsal joints. There is dorsal subluxation of the great toe. There is pressure erosion from the distal tibia articular surface present into the posterior dorsal aspect of the talus and dorsal cortex of the os calcis. Small degenerative intrusion cysts are present in the cortical surface of the dorsal aspect and rostrum of the talus. The navicular bone is not recognizable. There is lateral subluxation of cuneiform and cuboid bones. 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 There is osteolysis of the distal first metatarsal articular surface but no plain film evidence of acute osteomyelitis. [facility]-[id number] Performing Organization Address City/State/Zipcode Phone Number [facility] [address] [place] [address] * PV duplex arterial lower extremity (03/02/2017 5:48 PM) Narrative Performed At EXAM: Left lower extremity arterial Doppler [facility] HISTORY: pad TECHNIQUE: Real-time as well as pulsed and color Doppler evaluation of left common femoral, femoral, popliteal, posterior tibial, anterior tibial, and dorsalis pedis arteries are evaluated. The examination includes a full duplex Doppler scan of the blood vessels (real-time P mode grayscale, Doppler spectral analysis, and Doppler color flow imaging). COMPARISON: 09/10/2016 IMPRESSION: 1. There is extensive calcified atherosclerotic plaque throughout the interrogated arteries. 2. Significant velocity gradients are in the left superficial femoral artery and popliteal artery suggesting hemodynamically significant stenoses in these locations. 3. Monophasic waveforms are seen throughout the interrogated arteries raising the possibility of inflow stenosis more proximally, outside the scope of this study. Further evaluation with a CTA of the pelvis with bilateral lower extremity runoff recommended for better characterization. FINDINGS: LEFT LEG: PEAK SYSTOLIC VELOCITIES ARE FOLLOWS: COMMON FEMORAL:152.49 cm/s FEMORAL: Proximal: 54.12 cm/s Mid:60.5 8 cm/s Distal:146.3 cm/s POPLITEAL: Proximal: 84.99 cm/s Mid:130. 12 cm/s Distal: 46.27 cm/s POSTERIOR TIBIAL: Proximal: 52.54 cm/s Mid:50.9 7 cm/s Distal:32.6 cm/s A NTERIOR TIBIAL: Proximal:73.67 cm/s Mid:60.2 7 cm/s Distal: 29.52 cm/s DORSALIS PEDIS:45.86 cm/s DOPPLER WAVEFORMS: COMMON FEMORAL: Monophasic FEMORAL Proximal: Monophasic Mid: Monophasic Distal: Monophasic POPLITEAL Proximal: Monophasic Mid: Monophasic Distal: Monophasic POSTERIOR TIBIAL Proximal: Monophasic Mid: Monophasic Distal: Monophasic ANTERIOR TIBIAL Proximal: Monophasic Mid: Monophasic Distal: Monophasic DORSALIS PEDIS: Monophasic [facility]-[id number] Procedure Note Interface, Radiology Results Incoming - 03/02/2017 6:02 PM ENGINEERING GROUP LEADER EXAM: Left lower extremity arterial Doppler HISTORY: pad TECHNIQUE: Real-time as well as pulsed and color Doppler evaluation of left common femoral, femoral, popliteal, posterior tibial, anterior tibial, and dorsalis pedis arteries are evaluated. The examination includes a full duplex Doppler scan of the blood vessels (real-time P mode grayscale, Doppler spectral analysis, and Doppler color flow imaging). COMPARISON: 09/10/2016 IMPRESSION: 1. There is extensive calcified atherosclerotic plaque throughout the interrogated arteries. 2. Significant velocity gradients are in the left superficial femoral artery and popliteal artery suggesting hemodynamically significant stenoses in these locations. 3. Monophasic waveforms are seen throughout the interrogated arteries raising the possibility of inflow stenosis more proximally, outside the scope of this study. Further evaluation with a CTA of the pelvis with bilateral lower extremity runoff recommended for better characterization. FINDINGS: LEFT LEG: PEAK SYSTOLIC VELOCITIES ARE FOLLOWS: COMMON FEMORAL: 152.49 cm/s FEMORAL: Proximal: 54.12 cm/s Mid: 60.58 cm/s Distal: 146.3 cm/s POPLITEAL: Proximal: 84.99 cm/s Mid: 130.12 cm/s Distal: 46.27 cm/s POSTERIOR TIBIAL: Proximal: 52.54 cm/s Mid: 50.97 cm/s Distal: 32.6 cm/s ANTERIOR TIBIAL: Proximal: 73.67 cm/s Mid: 60.27 cm/s Distal: 29.52 cm/s DORSALIS PEDIS: 45.86 cm/s DOPPLER WAVEFORMS: COMMON FEMORAL: Monophasic FEMORAL Proximal: Monophasic Mid: Monophasic Distal: Monophasic POPLITEAL Proximal: Monophasic Mid: Monophasic Distal: Monophasic POSTERIOR TIBIAL Proximal: Monophasic Mid: Monophasic Distal: Monophasic ANTERIOR TIBIAL Proximal: Monophasic Mid: Monophasic Distal: Monophasic DORSALIS PEDIS: Monophasic [facility]-[id number] Performing Organization Address City/State/Zipcode Phone Number [facility] [address] [place] [address] * Manual differential (03/02/2017 6:06 AM) Manual differential PERFORMED [facility] DEPARTMENT OF PATHOLOGY AND GENOMIC MEDICINE Neutrophils 56.0 36.0 - 66.0 % [facility] DEPARTMENT OF PATHOLOGY AND GENOMIC MEDICINE Lymphocytes 35.0 24.0 - 44.0 % [facility] DEPARTMENT OF PATHOLOGY AND GENOMIC MEDICINE Monocytes 4.0 0.0 - 6.0 % [facility] DEPARTMENT OF PATHOLOGY AND GENOMIC MEDICINE Eosinophils 3.0 0.0 - 6.0 % [facility] DEPARTMENT OF PATHOLOGY AND GENOMIC MEDICINE Basophils 2.0 (H) 0.0 - 1.2 % [facility] DEPARTMENT OF PATHOLOGY AND GENOMIC MEDICINE Metamyelocytes 0 0 - 1 % [facility] DEPARTMENT OF PATHOLOGY AND GENOMIC MEDICINE Promyelocytes 0 0 - 1 % [facility] DEPARTMENT OF PATHOLOGY AND GENOMIC MEDICINE Platelet slide review Nora adequate [facility] DEPARTMENT OF PATHOLOGY AND GENOMIC MEDICINE Performing Organization Address City/[facility] Phone Number [place] [address] [place] [address] PATHOLOGY AND GENOMIC MEDICINE * Lactic acid level (03/02/2017 12:16 AM) Lactic acid 3.5 (HH) 0.5 - 2.2 mmol/L [facility] DEPARTMENT OF Comment: PATHOLOGY AND Results called to and read GENOMIC MEDICINE back by TIM ODOM RN AT 00:56 03/02/2017 BY LB. Specimen Blood Performing Organization Address City/[facility]/Zipcode Phone Number [place] [phone] [place] [address] PATHOLOGY AND GENOMIC MEDICINE after 03/02/2017 Insurance Payer Benefit Subscriber ID Type Phone Address Plan / Group AETNA AETNA xxxxxxxxxx HMO HMO,POS,EP O, MC/EC
--- OUTSIDE RECORDS SUMMARY | 2018-03-03 08:22 | XMS REPORT | Clinical Summary ---
Author Author [facility] Address Unknown Phone Unavailable Care Team Providers Care Rock Breaker Name Role Phone Bernie Travonmichael Ovalle PCP Allergies Comments Active Allergy Reactions Severity Noted Date Per patient causes anemia when taken with vancomycin Piperacillin-Tazobactam Other (See 06/30/2017 Comments) Medications End Date Status Medication Sig Dispensed Refills Start Date Active atorvastatin (LIPITOR) 40 Take 40 mg by 0 MG tablet mouth daily. Active omeprazole (PRILOSEC) 40 Take 40 mg by 0 MG capsule mouth daily. Active buPROPion (WELLBUTRIN) 75 Take 75 mg by 0 MG tablet mouth 2 (two) times daily. Active metoprolol (LOPRESSOR) 25 Take 25 mg by 0 MG tablet mouth 2 (two) times daily. Active furosemide (LASIX) 20 MG Take 10 mg by 0 tablet mouth 2 (two) times daily. Active pregabalin (LYRICA) 200 Take 200 mg 0 MG capsule by mouth 2 (two) times daily. Active insulin aspart (NOVOLOG) Inject 0 100 unit/mL injection subcutaneousl y 3 (three) times daily before meals. Active [employer] ASPIRIN Take 81 mg by 0 ORAL mouth . Active omega-3 fatty acids-fish Take 2 g by 0 oil 340-1,000 mg Cap per mouth 2 (two) capsule times daily. Active jvTZUUGsrw-xpkwmqvtp-oldc Take by mouth 0 iazid 10-320-25 mg Tab daily. Active INSULIN DETEMIR (LEVEMIR Inject 60 0 SUBQ) Units subcutaneousl y nightly. Active DAPAGLIFLOZIN/METFORMIN Take 1 tablet 0 HCL (XIGDUO XR ORAL) by mouth 2 (two) times daily . Active ciprofloxacin HCl (CIPRO) Take 500 mg 0 500 MG tablet by mouth daily. Active doxycycline (VIBRA-TABS) Take 100 mg 0 100 MG tablet by mouth daily. 07/29/2017 Discontinued ciprofloxacin HCl (CIPRO) Take 500 mg 0 500 MG tablet by mouth 2 (two) times daily. 08/18/2017 acetaminophen-codeine Take 1 tablet 60 tablet 0 (TYLENOL #3) 300-30 mg by mouth 8 per tablet every 4 (four) hours as needed for up to 10 days. 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 11/10/2017 Chronic osteomyelitis involving ankle and foot, left 11/10/2017 Septic arthritis of foot 07/31/2017 Diabetic neurogenic arthropathy 06/30/2017 Ulcer of lower extremity due to diabetes mellitus 06/30/2017 Chronic osteomyelitis of left foot 06/30/2017 Abscess of bursa, left ankle and foot (CODE) 06/30/2017 Encounters Care Team Description Date Type Specialty Deisy Warren MD ARTHRODESIS,ANKLE 11/10/2017 Surgery Demetrius Green MD 11/10/2017 Anesthesia Event Deisy Warren MD 11/10/2017 Hospital Encounter Deisy Warren MD DEBRIDEMENT/I&D,WOUND EXTREMITY LOWER 08/05/2017 Surgery Ramin Sanchez MD 08/05/2017 Anesthesia Event Juliano Angel MD PERIPHERAL ANGIOS / AORTOGRAM 08/02/2017 Surgery Deisy Warren MD DEBRIDEMENT/I&D,WOUND EXTREMITY LOWER 08/02/2017 Surgery Shey Franco MD 08/02/2017 Anesthesia Event 08/01/2017 Orders Only General Internal Medicine Kecia Richardson MD 07/29/2017 Hospital General Internal Medicine - Encounter 08/08/2017 Deisy Warren MD I&D,BONE FOOT 06/30/2017 Surgery Shlomo Kent MD 06/30/2017 Anesthesia Event Deisy Warren MD 06/30/2017 Hospital Encounter 06/30/2017 Orders Only General Internal Medicine after 03/02/2017 Social History Date Tobacco Use Types Packs/Day Years Used Quit: 06/25/2007 Former Smoker 2 Smokeless Tobacco: Never Used Alcohol Use Drinks/Week oz/Week Comments No Sex Assigned at Date Recorded Not on file Industry Job Start Date Occupation Not on file Not on file Not on file Travel End Travel History Travel Start No recent travel history available. Last Filed Vital Signs Time Taken Vital Sign Reading 11/10/2017 11:25 AM CDT Blood Pressure 132/70 11/10/2017 11:25 AM CDT Pulse 82 11/10/2017 10:26 AM CDT Temperature 36.9 C (98.4 F) 11/10/2017 11:25 AM CDT Respiratory Rate 19 11/10/2017 11:25 AM CDT Oxygen Saturation 97% - Inhaled Oxygen - Concentration 11/10/2017 6:27 AM CDT Weight 102.1 kg (225 lb) 11/10/2017 6:27 AM CDT Height 190.5 cm (6' 3") 11/10/2017 6:27 AM CDT Body Mass Index 28.12 Plan of Treatment Not on file Implants Device Identifier Shelf Expiration Date Model / Serial / Lot Implanted Type Area Manufactur er [id number] / / Schanz Screw 5.0 Mm X 175 Mm Fracture/F Left: Ankle MALA Implanted: Qty: 4 on 11/10/2017 by Deisy Sandoval MD [id number] / / Quick Connect X-Short Fracture/F Left: Ankle MALA Implanted: Qty: 4 on 11/10/2017 by Deisy Sandoval MD [id number] / / Quick Connect Short Fracture/F Left: Ankle MALA Implanted: Qty: 2 on 11/10/2017 by Deisy Sandoval MD [id number] / / Nut Fracture/F Left: Ankle MALA Implanted: Qty: 4 on 11/10/2017 by Deisy Sandoval MD [id number] / / 50 Mm Protective Pin Cap Fracture/F Left: Ankle MALA Implanted: Qty: 4 on 11/10/2017 by Deisy Sandoval MD [id number] / / Schanz Screw [place] Fracture/F Left: Ankle MALA Implanted: Qty: 4 on 11/10/2017 by Deisy Sandoval MD [id number] / / [place] Wire Left: Ankle Synthes Implanted: Qty: 9 on 08/05/2017 by Deisy Warren MD [id number] / / Smooth Wire Left: Ankle Synthes Implanted: Qty: 1 on 08/05/2017 by Deisy Warren MD Device Identifier Shelf Expiration Date Model / Serial / Lot Explanted Type Area Manufactur er [id number] / / Smooth Wire Ankle Synthes Explanted: Qty: 1 on 08/05/2017 [id number] / / [place] Wire Left: Ankle Synthes Explanted: Qty: 1 on 08/05/2017 Procedures Comments Procedure Name Priority Date/Time Associated Diagnosis POCT-GLUCOSE METER Routine 11/10/2017 11:15 AM CDT POCT-GLUCOSE METER Routine 11/10/2017 10:33 AM CDT PROCEDURE W/ C-ARM 11/10/2017 Chronic osteomyelitis of 8:00 AM CDT ankle and foot, left (HCC) 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 ([facility]) Special Needs MINI C-ARM, SUPINE/HIN DFOOT POSITIONIN G AND SYNTHES RING FIXATER (NEW) SYNTHES (ROSSANA) CONFIRMED 11/09 OSTEOTOMY,FIBULA 11/10/2017 Chronic osteomyelitis of 8:00 AM CDT ankle and foot, left (HCC) 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 ([facility]) Special Needs MINI C-ARM, SUPINE/HIN DFOOT POSITIONIN G AND SYNTHES RING FIXATER (NEW) SYNTHES (ROSSANA) CONFIRMED 11/09 REVISION,EXTERNAL FIXATOR 11/10/2017 Chronic osteomyelitis of 8:00 AM CDT ankle and foot, left (HCC) 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 ([facility]) Special Needs MINI C-ARM, SUPINE/HIN DFOOT POSITIONIN G AND SYNTHES RING FIXATER (NEW) SYNTHES (ROSSANA) CONFIRMED 11/09 I&D,BONE FOOT 11/10/2017 Chronic osteomyelitis of 8:00 AM CDT ankle and foot, left (HCC) 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 ([facility]) Special Needs MINI C-ARM, SUPINE/HIN DFOOT POSITIONIN G AND SYNTHES RING FIXATER (NEW) SYNTHES (ROSSANA) CONFIRMED 11/09 ARTHRODESIS,FOOT 11/10/2017 Chronic osteomyelitis of 8:00 AM CDT ankle and foot, left (HCC) 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 ([facility]) Special Needs MINI C-ARM, SUPINE/HIN DFOOT POSITIONIN G AND SYNTHES RING FIXATER (NEW) SYNTHES (ROSSANA) CONFIRMED 11/09 ARTHRODESIS,ANKLE 11/10/2017 Chronic osteomyelitis of 8:00 AM CDT ankle and foot, left (HCC) 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 (HCC) Special Needs MINI C-ARM, SUPINE/HIN DFOOT POSITIONIN G AND SYNTHES RING FIXATER (NEW) SYNTHES (ROSSANA) CONFIRMED 11/09 POCT-GLUCOSE METER Routine 11/10/2017 7:08 AM CDT POCT-GLUCOSE METER Routine 11/10/2017 6:30 AM CDT RHYTHM STRIP - SCAN 08/10/2017 10:22 AM CDT CARDIAC CATH REPORT - 08/10/2017 SCAN 10:22 AM CDT POCT-GLUCOSE METER Routine 08/08/2017 5:01 PM CDT POCT-GLUCOSE METER Routine 08/08/2017 11:43 AM CDT VANCOMYCIN LEVEL, TROUGH Timed 08/08/2017 8:38 AM CDT POCT-GLUCOSE METER Routine 08/08/2017 6:21 AM CDT BUN AND CREATININE Routine 08/08/2017 4:52 AM CDT POCT-GLUCOSE METER Routine 08/07/2017 8:37 PM CDT POCT-GLUCOSE METER Routine 08/07/2017 5:13 PM CDT POCT-GLUCOSE METER Routine 08/07/2017 11:28 AM CDT POCT-GLUCOSE METER Routine 08/07/2017 8:58 AM CDT POCT-GLUCOSE METER Routine 08/07/2017 6:31 AM CDT POCT-GLUCOSE METER Routine 08/06/2017 9:18 PM CDT POCT-GLUCOSE METER Routine 08/06/2017 4:37 PM CDT POCT-GLUCOSE METER Routine 08/06/2017 11:33 AM CDT VANCOMYCIN LEVEL, TROUGH Timed 08/06/2017 8:04 AM CDT POCT-GLUCOSE METER Routine 08/06/2017 6:10 AM CDT POCT-GLUCOSE METER Routine 08/05/2017 8:11 PM CDT SEDIMENTATION RATE Routine 08/05/2017 7:02 PM CDT C-REACTIVE PROTEIN Routine 08/05/2017 7:02 PM CDT POCT-GLUCOSE METER Routine 08/05/2017 5:55 PM CDT POCT-GLUCOSE METER Routine 08/05/2017 4:24 PM CDT FL JACQUARD PLATE MAKER IN OR 30 Routine 08/05/2017 MINUTE INCREMENTS 3:00 PM CDT AFB CULTURE + SMEAR Routine 08/05/2017 1:37 PM CDT ANAEROBIC CULTURE Routine 08/05/2017 1:37 PM CDT SURGICALLY OBTAINED Routine 08/05/2017 CULTURE + GRAM STAIN 1:37 PM CDT FUNGUS CULTURE + SMEAR Routine 08/05/2017 1:37 PM CDT SPIN/CONCENTRATION CHARGE Routine 08/05/2017 1:37 PM CDT TISSUE EXAM AP Routine 08/05/2017 1:37 PM CDT PROCEDURE W/ C-ARM 08/05/2017 Infection 12:30 PM CDT Special Needs ANTIBIOTIC SPACER TALECTOMY 08/05/2017 Infection 12:30 PM CDT Special Needs ANTIBIOTIC SPACER DEBRIDEMENT/I&D,WOUND 08/05/2017 Infection EXTREMITY LOWER 12:30 PM CDT Special Needs ANTIBIOTIC SPACER BASIC METABOLIC PANEL (7) Routine 08/05/2017 10:42 AM CDT POCT-GLUCOSE METER Routine 08/05/2017 6:05 AM CDT POCT-GLUCOSE METER Routine 08/04/2017 8:42 PM CDT VANCOMYCIN LEVEL, TROUGH Timed 08/04/2017 8:17 PM CDT POCT-GLUCOSE METER Routine 08/04/2017 4:49 PM CDT POCT-GLUCOSE METER Routine 08/04/2017 11:42 AM CDT POCT-GLUCOSE METER Routine 08/04/2017 6:19 AM CDT POCT-GLUCOSE METER Routine 08/03/2017 8:30 PM CDT POCT-GLUCOSE METER Routine 08/03/2017 5:05 PM CDT POCT-GLUCOSE METER Routine 08/03/2017 11:38 AM CDT POCT-GLUCOSE METER Routine 08/03/2017 6:35 AM CDT CBC (HEMOGRAM ONLY) Routine 08/03/2017 5:21 AM CDT BASIC METABOLIC PANEL (7) Routine 08/03/2017 5:21 AM CDT POCT-GLUCOSE METER Routine 08/02/2017 8:53 PM CDT VANCOMYCIN LEVEL, TROUGH Timed 08/02/2017 8:48 PM CDT PERIPHERAL ANGIOS / 08/02/2017 PVD AORTOGRAM 5:30 PM CDT AMPUTATION,FOOT 08/02/2017 . 1:30 PM CDT DEBRIDEMENT/I&D,WOUND 08/02/2017 . EXTREMITY LOWER 1:30 PM CDT POCT-GLUCOSE METER Routine 08/02/2017 12:14 PM CDT POCT-GLUCOSE METER Routine 08/02/2017 7:17 AM CDT C-REACTIVE PROTEIN Routine 08/02/2017 5:23 AM CDT POCT-GLUCOSE METER Routine 08/01/2017 9:07 PM CDT NM BONE AND/OR JOINT Routine 08/01/2017 IMAGING 3 PHASE 5:48 PM CDT PERIPHERAL VASCULAR 08/01/2017 REPORT - SCAN 5:20 PM CDT POCT-GLUCOSE METER Routine 08/01/2017 5:04 PM CDT ECG 12-LEAD Routine 08/01/2017 4:32 PM CDT Procedure Note - Interface, External Ris In - 08/01/2017 4:33 PM CDT Ventricula r Rate 79 BPM Atrial Rate 79 BPM P-R Interval 140 ms QRS Duration 88 ms Q-T Interval 406 ms QTC Calculatio n(Bazett) 465 ms P [place] 40 degrees R [place] -24 degrees T [place] 2 degrees Normal sinus rhythm Prolonged QT Abnormal ECG When compared with ECG of 8 06:11, No significan t change was found ECG 12-LEAD Routine 08/01/2017 4:32 PM CDT ARTERIAL DOPPLER LEGS Routine 08/01/2017 BILATERAL 3:58 PM CDT 2D ECHO W/ DOPPLER Routine 08/01/2017 (CW/PW/COLOR) 11:41 AM CDT POCT-GLUCOSE METER Routine 08/01/2017 11:09 AM CDT CBC W/PLT COUNT & AUTO Routine 08/01/2017 DIFFERENTIAL 6:00 AM CDT VANCOMYCIN LEVEL, TROUGH Timed 08/01/2017 6:00 AM CDT BASIC METABOLIC PANEL (7) Routine 08/01/2017 6:00 AM CDT CBC W/PLT COUNT & AUTO Routine 08/01/2017 DIFFERENTIAL 6:00 AM CDT C-REACTIVE PROTEIN Routine 08/01/2017 6:00 AM CDT POCT-GLUCOSE METER Routine 08/01/2017 5:59 AM CDT POCT-GLUCOSE METER Routine 07/31/2017 8:35 PM CDT POCT-GLUCOSE METER Routine 07/31/2017 5:07 PM CDT VANCOMYCIN LEVEL, TROUGH Timed 07/31/2017 5:04 PM CDT POCT-GLUCOSE METER Routine 07/31/2017 12:22 PM CDT (MANUAL DIFFERENTIAL) Routine 07/31/2017 5:18 AM CDT CBC W/PLT COUNT & AUTO Routine 07/31/2017 DIFFERENTIAL 5:18 AM CDT BASIC METABOLIC PANEL (7) Routine 07/31/2017 5:18 AM CDT CBC W/PLT COUNT & AUTO Routine 07/31/2017 DIFFERENTIAL 5:18 AM CDT C-REACTIVE PROTEIN Routine 07/31/2017 5:18 AM CDT SEDIMENTATION RATE Routine 07/31/2017 5:18 AM CDT POCT-GLUCOSE METER Routine 07/30/2017 8:23 PM CDT MRSA SCREEN Routine 07/30/2017 4:37 PM CDT WOUND CULTURE + GRAM Routine 07/30/2017 STAIN 3:10 PM CDT POCT-GLUCOSE METER Routine 07/30/2017 12:27 PM CDT POCT-GLUCOSE METER Routine 07/30/2017 6:19 AM CDT CBC W/PLT COUNT & AUTO Routine 07/30/2017 DIFFERENTIAL 4:03 AM CDT VANCOMYCIN LEVEL, TROUGH Timed 07/30/2017 4:03 AM CDT COMPREHENSIVE METABOLIC Routine 07/30/2017 PANEL 4:03 AM CDT CBC W/PLT COUNT & AUTO Routine 07/30/2017 DIFFERENTIAL 4:03 AM CDT AFB CULTURE + SMEAR Routine 06/30/2017 7:51 AM OFFICE SPEC ANAEROBIC CULTURE Routine 06/30/2017 7:51 AM OFFICE SPEC SURGICALLY OBTAINED Routine 06/30/2017 CULTURE + GRAM STAIN 7:51 AM OFFICE SPEC SPIN/CONCENTRATION CHARGE Routine 06/30/2017 7:51 AM OFFICE SPEC AFB CULTURE + SMEAR Routine 06/30/2017 7:48 AM OFFICE SPEC ANAEROBIC CULTURE Routine 06/30/2017 7:48 AM OFFICE SPEC SURGICALLY OBTAINED Routine 06/30/2017 CULTURE + GRAM STAIN 7:48 AM OFFICE SPEC SPIN/CONCENTRATION CHARGE Routine 06/30/2017 7:48 AM OFFICE SPEC AFB CULTURE + SMEAR Routine 06/30/2017 7:45 AM OFFICE SPEC ANAEROBIC CULTURE Routine 06/30/2017 7:45 AM OFFICE SPEC SURGICALLY OBTAINED Routine 06/30/2017 CULTURE + GRAM STAIN 7:45 AM OFFICE SPEC TISSUE EXAM AP Routine 06/30/2017 7:38 AM OFFICE SPEC ARTHROTOMY,ANKLE 06/30/2017 Diabetic neuropathic 7:00 AM OFFICE SPEC arthropathy (HCC) Diabetes mellitus with skin ulcer (HCC) Abscess of bursa of left foot Chronic osteomyelitis of left foot (HCC) BIOPSY/EXCISION,SOFT 06/30/2017 Diabetic neuropathic TISSUE EXTREMITY LOWER 7:00 AM OFFICE SPEC arthropathy (HCC) Diabetes mellitus with skin ulcer (HCC) Abscess of bursa of left foot Chronic osteomyelitis of left foot (HCC) I&D,BONE FOOT 06/30/2017 Diabetic neuropathic 7:00 AM OFFICE SPEC arthropathy (HCC) Diabetes mellitus with skin ulcer (HCC) Abscess of bursa of left foot Chronic osteomyelitis of left foot (HCC) ECG 12-LEAD Routine 06/30/2017 6:11 AM OFFICE SPEC Procedure Note - Interface, External Ris In - 06/30/2017 6:14 AM OFFICE SPEC Ventricula r Rate 76 BPM Atrial Rate 76 BPM P-R Interval 160 ms QRS Duration 92 ms Q-T Interval 404 ms QTC Calculatio n(Bazett) 454 ms P [place] 44 degrees R [place] -40 degrees T [place] 17 degrees Normal sinus rhythm Left axis deviation Abnormal ECG No previous ECGs available ECG 12-LEAD Routine 06/30/2017 6:11 AM OFFICE SPEC POCT-GLUCOSE METER Routine 06/30/2017 6:06 AM OFFICE SPEC BUN AND CREATININE Routine 06/30/2017 6:05 AM OFFICE SPEC ELECTROLYTE PANEL Routine 06/30/2017 6:05 AM OFFICE SPEC HEMOGLOBIN Routine 06/30/2017 6:05 AM OFFICE SPEC after 03/02/2017 Results * POC-Glucose meter (11/10/2017 11:15 AM CDT) Only the most recent of 42 results within the time period is included. POC-Glucose Meter 111 (H)Comment: TESTED AT [facility] 70 - 110 mg/dL [facility] [address] [facility] [address] Specimen Blood Performing Organization Address City/[facility] Phone Number [address] [address] [facility] * RHYTHM STRIP - SCAN (08/10/2017 10:22 AM CDT) Narrative Performed At * CARDIAC CATH REPORT - SCAN (08/10/2017 10:22 AM CDT) Narrative Performed At * Vancomycin level, trough (08/08/2017 8:38 AM CDT) Only the most recent of 7 results within the time period is included. Vancomycin Tr 25.4 (H) 10.0 - 20.0 ug/mL [facility] Specimen Blood - Arm, Right Performing Organization Address City/[facility] Phone Number [facility] [place] [address] [facility] [address] [place], [place] [id number] * BUN and Creatinine (08/08/2017 4:52 AM CDT) Only the most recent of 2 results within the time period is included. BUN 13 10 - 26 mg/dL [facility] Creatinine 1.25 (H) 0.50 - 1.20 mg/dL [facility] EGFR 60Comment: ESTIMATED GFR IS mL/min/1.73 sq m [facility] NOT ACCURATE CREATININE CLEARANCE IN PREDICTING GLOMERULAR FILTRATION RATE. ESTIMATED GFR IS NOT APPLICABLE FOR DIALYSIS PATIENTS. Specimen Blood - Arm, Left Performing Organization Address [facility] Number [facility] [place] [address] [facility] [place] [address] * C-Reactive Protein (08/05/2017 7:02 PM CDT) Only the most recent of 4 results within the time period is included. CRP 10.16 (H) 0.00 - 1.00 mg/dL [facility] Specimen Blood - Central Venous Line Performing Organization Address [facility] Number [facility] [place] [address] [facility] [place] [address] * Sedimentation rate (08/05/2017 7:02 PM CDT) Only the most recent of 2 results within the time period is included. Sed Rate 113 (H) 0 - 20 mm/HR [facility] Specimen Blood - Central Venous Line Performing Organization Address [facility] Number [facility] [place] [address] [facility] [place] [address] * [place] radiology scheduler in or 30 minute increments (08/05/2017 3:00 PM CDT) Narrative Performed At FLUOROSCOPIC UNIT UTILIZED. NO INTERPRETATION REQUESTED. [facility] Procedure Note Interface, External Ris In - 08/12/2017 7:05 AM CDT FLUOROSCOPIC UNIT UTILIZED. NO INTERPRETATION REQUESTED. Performing Organization Address [facility] Phone Number [facility] * AFB culture + smear (08/05/2017 1:37 PM CDT) Only the most recent of 4 results within the time period is included. Result No acid-fast bacilli isolated [facility] in 42 days [facility] AFB Smear No acid fast bacilli seen [facility] Specimen Tissue - Other Performing Organization Address City/[facility] Phone Number [address] [address] [phone] [place] [address] * Anaerobic culture (08/05/2017 1:37 PM CDT) Only the most recent of 4 results within the time period is included. Result No anaerobes isolated [facility] Specimen Tissue - Other Performing Organization Address [facility] Phone Number [address] [address] [phone] [place] [address] * Surgically obtained culture + gram stain (08/05/2017 1:37 PM CDT) Only the most recent of 4 results within the time period is included. Result No growth [facility] Gram Stain Result No WBCs [facility] Gram Stain Result No organisms seen [facility] Specimen Tissue - Other Performing Organization Address [facility] Phone Number [address] [address] [facility] * Fungus culture + smear (08/05/2017 1:37 PM CDT) Result No fungus isolated in 28 days [facility] Fungus Smear No fungi seen [facility] Specimen Tissue - Other Performing Organization Address City/[facility] Phone Number [address] [address] [phone] [place] [address] * SPIN/CONCENTRATION CHARGE (08/05/2017 1:37 PM CDT) Only the most recent of 3 results within the time period is included. Concentration charged Done [facility] Specimen Tissue - Other Performing Organization Address City/State/Zipcode Phone Number [address] [phone] * Tissue Exam (08/05/2017 1:37 PM CDT) Only the most recent of 2 results within the time period is included. Case Report Surgical Pathology [facility] Report Case: [id number] Authorizing Provider:Deisy Warren MDCollected: 08/05/2017 1337 Ordering Location: [address] MED/SURGRe ceived: 08/06/2017 1203 Pathologist: Arnaldo Bender MD Specimen:Bone, LEFT TALIS DIAGNOSIS A. BONE, LEFT TALUS, [facility] TALECTOMY: - BONE WITH CHRONIC OSTEOMYELITIS Signing Pathologist Direct Phone Line: [phone] CPT Code(s) 50814, 53361 [facility] CLINICAL HISTORY Septic joint, osteomyelitis [facility] SPECIMEN SOURCE Bone [facility] GROSS DESCRIPTION Received fresh labeled "bone" [facility] are three irregular, campbell-white to yellow-jurado, ragged and jagged portions of bone measuring 8.0 x 6.5 x 3.0 cm in aggregate. The specimen is serially sectioned, and phlebotomy services representative sections are submitted in cassettes [id number] for decalcification. DB/ew MICROSCOPIC DESCRIPTION Microscopic examination is [facility] performed and is incorporated in the diagnostic line. Gross assessment was [facility] performed at [place], Department of Pathology, [address] [place] [id number], Technical component was [facility] performed at [facility] Department of Pathology, [address] [place] [address], Professional component [facility] was performed at [facility] Department of Pathology, [place] [address], Specimen Tissue - Bone Performing Organization Address City/State/Zipcode Phone Number [facility] [place] [address] [place] [address] [facility] [place] [address] * Basic Metabolic Panel (08/05/2017 10:42 AM CDT) Only the most recent of 4 results within the time period is included. Sodium 135 135 - 148 meq/L [facility] Potassium 4.2 3.6 - 5.5 meq/L [facility] Chloride 102 98 - 106 meq/L [facility] CO2 23 20 - 29 meq/L [facility] BUN 12 10 - 26 mg/dL [facility] Creatinine 1.03 0.50 - 1.20 mg/dL [facility] Glucose 159 (H) 70 - 110 mg/dL [facility] Calcium 8.7 8.5 - 10.5 mg/dL [facility] EGFR 75Comment: ESTIMATED GFR IS mL/min/1.73 sq m [facility] NOT ACCURATE CREATININE CLEARANCE IN PREDICTING GLOMERULAR FILTRATION RATE. ESTIMATED GFR IS NOT APPLICABLE FOR DIALYSIS PATIENTS. Specimen Blood - Central Venous Line Performing Organization Address City/State/[facility] Phone Number [facility] [address] [facility] [place] [address] * CBC (Hemogram only) (08/03/2017 5:21 AM CDT) WBC 9.5 4.0 - 10.0 K/L [facility] RBC 4.36 4.20 - 5.80 M/L [facility] Hemoglobin 9.8 (L) 13.0 - 16.8 GM/DL [facility] Hematocrit 31.6 (L) 40.0 - 50.0 % [facility] MCV 72.5 (L) 82.0 - 98.0 fL [facility] MCH 22.5 (L) 27.0 - 33.0 pg [facility] MCHC 31.0 (L) 32.0 - 36.0 GM/DL [facility] RDW 19.2 (H) 10.3 - 14.2 % [facility] Platelets 412 150 - 430 K/CU MM [facility] MPV 8.9 6.5 - 10.5 fL [facility] nRBC 0 0 - 0 /100 WBC [facility] Specimen Blood Performing Organization Address City/State/Zipcode Phone Number [facility] [place] [address] [facility] [place] [address] * NM bone scan 3 phase (08/01/2017 5:48 PM CDT) Narrative Performed At FINAL REPORT [facility] PROCEDURE: 3-PHASE BONE SCAN CPT CODE:[id number] INDICATION:left ankle osteomyelitis PROTOCOL:25.1 mCi of Tc-99m MDP was injected intravenously. Flow images of the feet and ankles and early blood pool images of the same region were obtained. Delayed static images including similar regions were also obtained approximately 3 hours later. FINDINGS:Flow images show diffuse mild increase in activity in the left lower leg and foot with greater increase in the left hindfoot. There is amputation of the right midfoot. Blood pool images show similar findings. Delayed static images show focal moderate increase in activity in the left talus with milder increase in adjacent regions of the left lower leg, anterior calcaneus, and multiple tarsal bones. Amputation at the right midfoot region is again noted. IMPRESSION: 1. Findings are consistent with osteomyelitis in the left talus. Areas of increase in multiple adjacent bones are more consistent with secondary regional hyperemia and inflammation. 2. Right midfoot amputation. NOTE: No radiographic images were available for comparison/correlation. Signed: Lonny Manzanares MD Report Verified Date/Time:08/01/2017 18:00:44 Procedure Note Interface, External Ris In - 08/01/2017 6:02 PM CDT FINAL REPORT PROCEDURE: 3-PHASE BONE SCAN CPT CODE: 36097 INDICATION: left ankle osteomyelitis PROTOCOL: 25.1 mCi of Tc-99m MDP was injected intravenously. Flow images of the feet and ankles and early blood pool images of the same region were obtained. Delayed static images including similar regions were also obtained approximately 3 hours later. FINDINGS: Flow images show diffuse mild increase in activity in the left lower leg and foot with greater increase in the left hindfoot. There is amputation of the right midfoot. Blood pool images show similar findings. Delayed static images show focal moderate increase in activity in the left talus with milder increase in adjacent regions of the left lower leg, anterior calcaneus, and multiple tarsal bones. Amputation at the right midfoot region is again noted. IMPRESSION: 1. Findings are consistent with osteomyelitis in the left talus. Areas of increase in multiple adjacent bones are more consistent with secondary regional hyperemia and inflammation. 2. Right midfoot amputation. NOTE: No radiographic images were available for comparison/correlation. Signed: Lonny Manzanares MD Report Verified Date/Time: 08/01/2017 18:00:44 Performing Organization Address City/[employer] Phone Number [facility] * PERIPHERAL VASCULAR REPORT - SCAN (08/01/2017 5:20 PM CDT) Narrative Performed At * ECG 12 lead (08/01/2017 4:32 PM CDT) Only the most recent of 2 results within the time period is included. Narrative Performed At Ventricular Rate 79 BPM [email or web address] Atrial Rate 79 BPM P-R Interval 140 ms QRS Duration 88 ms Q-T Interval 406 ms QTC Calculation(Bazett) 465 ms P [place] 40 degrees R [place] -24 degrees T [place] 2 degrees Normal sinus rhythm Prolonged QT Abnormal ECG When compared with ECG of 30-JUN-2017 06:11, No significant change was found Confirmed by Antwan Poon ([id number]) on 08/10/2017 5:13:17 PM Procedure Note Interface, External Ris In - 08/10/2017 5:13 PM CDT Ventricular Rate 79 BPM Atrial Rate 79 BPM P-R Interval 140 ms QRS Duration 88 ms Q-T Interval 406 ms QTC Calculation(Bazett) 465 ms P [place] 40 degrees R [place] -24 degrees T [place] 2 degrees Normal sinus rhythm Prolonged QT Abnormal ECG When compared with ECG of 30-JUN-2017 06:11, No significant change was found Confirmed by Antwan Poon ([id number]) on 08/10/2017 5:13:17 PM Performing Organization Address City/[employer]/[facility] Phone Number [employer] * Arterial doppler legs bilateral (08/01/2017 3:58 PM CDT) Narrative Performed At FINAL REPORT [facility] Bilateral lower extremity arterial ultrasound. COMPARISON STUDY: None available. TECHNIQUE: Grayscale, color-flow, duplex Doppler and spectral analysis of the major vascular structures in both lower extremities was performed. FINDINGS: Biphasic waveform is seen in the right lower extremity from the common femoral artery to the posterior tibial artery, anterior tibial artery, peroneal artery and dorsalis pedis artery. On the left side, monophasic waveform is seen from the common femoral artery to the peroneal artery, posterior tibial artery, anterior tibial artery and dorsalis pedis artery. Significant plaque is seen bilaterally. IMPRESSION: 1. Diffuse biphasic waveforms throughout the right lower extremity and monophasic waveforms in the left lower extremity with significant plaque bilaterally. A three vessel runoff is noted bilaterally. Signed: Vini Zavala MD Report Verified Date/Time:08/01/2017 16:45:03 Reading Location: [address] Body Reading Room Procedure Note Interface, External Ris In - 08/01/2017 4:47 PM CDT FINAL REPORT Bilateral lower extremity arterial ultrasound. COMPARISON STUDY: None available. TECHNIQUE: Grayscale, color-flow, duplex Doppler and spectral analysis of the major vascular structures in both lower extremities was performed. FINDINGS: Biphasic waveform is seen in the right lower extremity from the common femoral artery to the posterior tibial artery, anterior tibial artery, peroneal artery and dorsalis pedis artery. On the left side, monophasic waveform is seen from the common femoral artery to the peroneal artery, posterior tibial artery, anterior tibial artery and dorsalis pedis artery. Significant plaque is seen bilaterally. IMPRESSION: 1. Diffuse biphasic waveforms throughout the right lower extremity and monophasic waveforms in the left lower extremity with significant plaque bilaterally. A three vessel runoff is noted bilaterally. Signed: Vini Zavala MD Report Verified Date/Time: 08/01/2017 16:45:03 Reading Location: [address] Body Reading Room Performing Organization Address City/State/Zipcode Phone Number [facility] * CBC with platelet count + automated diff (08/01/2017 6:00 AM CDT) Only the most recent of 3 results within the time period is included. WBC 5.5 4.0 - 10.0 K/L [facility] RBC 4.24 4.20 - 5.80 M/L [facility] Hemoglobin 9.5 (L) 13.0 - 16.8 GM/DL [facility] Hematocrit 30.5 (L) 40.0 - 50.0 % [facility] MCV 71.9 (L) 82.0 - 98.0 fL [facility] MCH 22.4 (L) 27.0 - 33.0 pg [facility] MCHC 31.1 (L) 32.0 - 36.0 GM/DL [facility] RDW 18.4 (H) 10.3 - 14.2 % [facility] Platelets 323 150 - 430 K/CU MM [facility] MPV 8.9 6.5 - 10.5 fL [facility] nRBC 0 0 - 0 /100 WBC [facility] % Neutros 58 % [facility] % Lymphs 25 % [facility] % Monos 12 % [facility] % Eos 4 % [facility] % Baso 1 % [facility] # Neutros 3.19 1.80 - 8.00 K/L [facility] # Lymphs 1.40 (L) 1.48 - 4.50 K/L [facility] # Monos 0.66 0.00 - 1.30 K/L [facility] # Eos 0.24 0.00 - 0.50 K/L [facility] # Baso 0.03 0.00 - 0.20 K/L [facility] Specimen Blood - Central Venous Line Performing Organization Address City/State/Zipcode Phone Number [facility] [place] [address] [facility] [place] [address] * Manual Differential (07/31/2017 5:18 AM CDT) % Neutros (manual) 61 % [facility] % Lymphs (manual) 24 % [facility] % Monos (manual) 6 % [facility] % Eos (manual) 4 % [facility] % Metamyelo (manual) 2 (H) 0 - 0 % [facility] % Bands (manual) 3 0 - 10 % [facility] # Neutros (manual) 3.17 1.80 - 8.00 K/L [facility] # Lymphs (manual) 1.25 (L) 1.48 - 4.50 K/L [facility] # Monos (manual) 0.31 0.00 - 1.30 K/L [facility] # Eos (manual) 0.21 0.00 - 0.50 K/L [facility] # Metamyelo (manual) 0.10 (H) 0.00 - 0.00 K/L [facility] # Bands (manual) 0.2 0.0 - 0.8 K/L [facility] Total Counted 100 [facility] Bands plus Segmented 3.33 [facility] Neutrophils WBC Morphology Normal [facility] Platelet Morphology Normal [facility] Anisocytosis 1+ few [facility] Hypochromia 1+ few [facility] Microcytes 1+ few [facility] Polychromasia 1+ few [facility] Specimen Blood Performing Organization Address City/[facility] Phone Number [facility] [address] [place], [place] [phone] [facility] [address] [place], [place] [id number] * MRSA screen (07/30/2017 4:37 PM CDT) Result No MRSA isolated [facility] Specimen Nasal - Nares Performing Organization Address [facility] Phone Number [address] [address] [facility] * Wound culture + gram stain (07/30/2017 3:10 PM CDT) Result No growth [facility] Gram Stain Result 1+ WBCs [facility] Gram Stain Result No organisms seen [facility] Specimen Wound - Ankle, Left Performing Organization Address [facility] Phone Number [place] [phone] [place] [address] [facility] * Comprehensive metabolic panel (07/30/2017 4:03 AM CDT) Protein, Total 6.1 6.0 - 8.5 gm/dL [facility] Albumin 3.0 (L) 3.5 - 5.0 g/dL [facility] Alkaline Phosphatase 51 30 - 115 U/L [facility] Total Bilirubin 0.4 0.1 - 1.2 mg/dL [facility] Sodium 139 135 - 148 meq/L [facility] Potassium 3.8 3.6 - 5.5 meq/L [facility] Chloride 105 98 - 106 meq/L [facility] CO2 20 20 - 29 meq/L [facility] BUN 12 10 - 26 mg/dL [facility] Creatinine 1.17 0.50 - 1.20 mg/dL [facility] Glucose 95 70 - 110 mg/dL [facility] Calcium 9.2 8.5 - 10.5 mg/dL [facility] AST 12 5 - 40 U/L [facility] ALT 11 5 - 50 U/L [facility] EGFR 65Comment: ESTIMATED GFR IS mL/min/1.73 sq m [facility] NOT ACCURATE CREATININE CLEARANCE IN PREDICTING GLOMERULAR FILTRATION RATE. ESTIMATED GFR IS NOT APPLICABLE FOR DIALYSIS PATIENTS. Specimen Blood Performing Organization Address [facility] Phone Number [facility] [place] [address] [place] [address] [facility] [place] [place] [address] * Hemoglobin (06/30/2017 6:05 AM OFFICE SPEC) Hemoglobin 12.5 (L) 13.0 - 16.8 GM/DL [facility] Specimen Blood Performing Organization Address City/[facility] Phone Number [facility] [place] [address] [facility] [place] [address] [place] [address] * Electrolytes (06/30/2017 6:05 AM OFFICE SPEC) Sodium 142 135 - 148 meq/L [facility] Potassium 3.8 3.6 - 5.5 meq/L [facility] Chloride 101 98 - 106 meq/L [facility] CO2 25 20 - 29 meq/L [facility] Specimen Blood Performing Organization Address [facility] Phone Number [facility] [place] [address] [facility] [place] [address] [place] [address] after 03/02/2017 Insurance Payer Benefit Subscriber ID Type Phone Address Plan / Group [employer] - [employer] HMO xxxxxxxxxx HMO/POS POS QPOS Advance Directives For more information, please contact: [facility] [address] [place] [address] Date Inactivated Comments Code Status Date Activated 11/10/2017 2:08 PM Full Code 11/10/2017 6:39 AM This code status was determined by: Patient 08/08/2017 7:42 PM Full Code 08/02/2017 9:13 PM This code status was determined by: Patient 06/30/2017 10:32 AM Full Code 06/30/2017 5:40 AM This code status was determined by: Patient
--- OUTSIDE RECORDS SUMMARY | 2018-03-03 08:23 | XMS REPORT ---
Author Author [facility] Address Unknown Phone Unavailable Care Team Providers Care Oil Recovery Unit Operator Name Role Phone KALIA WARREN Unavailable Unavailable LUCY PINK Unavailable Unavailable Andre Anderson Unavailable Unavailable Isaiah Vasquez Unavailable Unavailable Problems This patient has no known problems. Allergies, Adverse Reactions, Alerts This patient has no known allergies or adverse reactions. Medications This patient has no known medications. Results Test Description Test Time Test Comments Text Results Atomic Results Result Comments POCT-GLUCOSE METER 2017-11-10 11:45:00 POC-GLUCOSE METER (BEAKER) (test nifu=2479) 111 mg/dL 70-110 TESTED AT [facility] [place] [address] POCT-GLUCOSE [id number] 10:56:00* Test Item Value Reference Range Comments POC-GLUCOSE METER (BEAKER) (test avgi=4476) 69 mg/dL 70-110 Notified MAGGIE DEMARCO/TESTED AT [facility] [place] [address] POCT-GLUCOSE [id number] 07:09:00* Test Item Value Reference Range Comments POC-GLUCOSE METER (BEAKER) (test zbzc=9435) 106 mg/dL 70-110 TESTED AT [facility] [place] [address] POCT-GLUCOSE [id number] 06:42:00* Test Item Value Reference Range Comments POC-GLUCOSE METER (BEAKER) (test dyrs=9258) 60 mg/dL 70-110 Verify with Lab draw/TESTED AT [facility] [address] [place] [address] AFB CULTURE + [id number] 15:09:00* Test Item Value Reference Range Comments CULTURE (BEAKER) (test oqri=7452) No acid-fast bacilli isolated in 42 days AFB SMEAR (BEAKER) (test jepu=307) No acid fast bacilli seen FUNGUS CULTURE + [id number] 16:32:00* Test Item Value Reference Range Comments CULTURE (BEAKER) (test flxt=0886) No fungus isolated in 28 days FUNGUS SMEAR (BEAKER) (test sedi=1640) No fungi seen AFB CULTURE + [id number] 12:45:00* Test Item Value Reference Range Comments CULTURE (BEAKER) (test cdys=9719) No acid-fast bacilli isolated in 42 days AFB SMEAR (BEAKER) (test lkmi=991) No acid fast bacilli seen AFB CULTURE + [id number] 12:45:00* Test Item Value Reference Range Comments CULTURE (BEAKER) (test ircb=0710) No acid-fast bacilli isolated in 42 days AFB SMEAR (BEAKER) (test rosk=898) No acid fast bacilli seen AFB CULTURE + [id number] 12:45:00* Test Item Value Reference Range Comments CULTURE (BEAKER) (test xdmk=7850) No acid-fast bacilli isolated in 42 days AFB SMEAR (BEAKER) (test bdjh=391) No acid fast bacilli seen TISSUE [id number] 13:52:00Surgical Pathology Report Case: [id number] Authorizing Provider: Deisy Warren MD Collected: 08/05/2017 1337 Ordering Location: [address] MED/SURG Received: 08/06/2017 1203 Pathologist: Arnaldo Bender MD Specimen: Bone, LEFT TALIS A. BONE, LEFT TALUS, TALECTOMY:- BONE WITH CHRONIC OSTEOMYELITIS Signing Pathologist Direct Phone Line: [phone] signed by Arnaldo Bender MD on 08/13/2017 at 1:52 [id number], 60020Uzzlkq joint, osteomyelitisBone Received fresh labeled "bone" are three irregular, campbell-white to yellow-jurado, ragged and jagged portions of bone measuring 8.0 x 6.5 x 3.0 cm in aggregate.The specimen is serially sectioned, and digital sales representative sections are submitted in cassettes A1-A4 for decalcification. DB/ewMicroscopic examination is performed and is incorporated in the diagnostic line.[facility], Department of Pathology, [address] [place] [address], [place] [address], [facility], [facility], [address] [place] [address] [place] [address], [facility]ology, [address] [facility], [place] [address], XA, ENGINE ASSEMBLY SUPERVISOR IN OR/30 MINUTE [id number] 07:05:00Reason for exam:->c-arm neededFLUOROSCOPIC UNIT UTILIZED. NO INTERPRETATION REQUESTED. ROBIC [id number] 06:39:00* Test Item Value Reference Range Comments CULTURE (BEAKER) (test qoao=2563) No anaerobes isolated POCT-GLUCOSE [id number] 17:02:00* Test Item Value Reference Range Comments POC-GLUCOSE METER (BEAKER) (test ezcd=9243) 207 mg/dL 70-110 TESTED AT [facility] [place] [place] [address] POCT-GLUCOSE [id number] 11:57:00* Test Item Value Reference Range Comments POC-GLUCOSE METER (BEAKER) (test yvjl=6866) 166 mg/dL 70-110 TESTED AT [facility] [address] [place] [address] SURGICALLY OBTAINED CULTURE + GRAM [id number] 10:03:00* Test Item Value Reference Range Comments CULTURE (BEAKER) (test nogg=8110) No growth GRAM STAIN RESULT (BEAKER) (test dpxv=8430) No WBCs GRAM STAIN RESULT (BEAKER) (test tawc=08117) No organisms seen VANCOMYCIN LEVEL, [id number] 09:14:00* Test Item Value Reference Range Comments VANCOMYCIN TROUGH (BEAKER) (test evyk=584) 25.4 ug/mL 10.0-20.0 POCT-GLUCOSE [id number] 06:34:00* Test Item Value Reference Range Comments POC-GLUCOSE METER (BEAKER) (test lxow=0129) 103 mg/dL 70-110 TESTED AT [facility] [address] [place] [address] BUN AND [id number] 05:13:00* Test Item Value Reference Range Comments BLOOD UREA NITROGEN (BEAKER) (test rtwp=158) 13 mg/dL 10-26 CREATININE (BEAKER) (test bvrk=723) 1.25 mg/dL 0.50-1.20 EGFR (BEAKER) (test ljnf=5859) 60 mL/min/1.73 sq m ESTIMATED GFR IS NOT ACCURATE CREATININE CLEARANCE IN PREDICTING GLOMERULAR FILTRATION RATE. ESTIMATED GFR IS NOT APPLICABLE FOR DIALYSIS PATIENTS. POCT-GLUCOSE [id number] 20:41:00* Test Item Value Reference Range Comments POC-GLUCOSE METER (BEAKER) (test daxi=4120) 205 mg/dL 70-110 TESTED AT [facility] [address] [place] [address] POCT-GLUCOSE [id number] 17:14:00* Test Item Value Reference Range Comments POC-GLUCOSE METER (BEAKER) (test nftn=7146) 155 mg/dL 70-110 TESTED AT [facility] [address] [place] [address] POCT-GLUCOSE [id number] 11:32:00* Test Item Value Reference Range Comments POC-GLUCOSE METER (BEAKER) (test rwof=4684) 165 mg/dL 70-110 TESTED AT [facility] [address] [place] [address] SPIN/CONCENTRATION [id number] 09:07:00* Test Item Value Reference Range Comments CONCENTRATION CHARGED (BEAKER) (test hhok=2064) Done POCT-GLUCOSE [id number] 09:01:00* Test Item Value Reference Range Comments POC-GLUCOSE METER (BEAKER) (test wlhf=9486) 112 mg/dL 70-110 TESTED AT [facility] [address] [place] [address] POCT-GLUCOSE [id number] 06:40:00* Test Item Value Reference Range Comments POC-GLUCOSE METER (BEAKER) (test jqrl=5202) 97 mg/dL 70-110 TESTED AT [facility] [address] [place] [address] POCT-GLUCOSE [id number] 21:22:00* Test Item Value Reference Range Comments POC-GLUCOSE METER (BEAKER) (test rfsg=5797) 202 mg/dL 70-110 TESTED AT [facility] [address] [place] [address] POCT-GLUCOSE [id number] 16:47:00* Test Item Value Reference Range Comments POC-GLUCOSE METER (BEAKER) (test brxp=0886) 262 mg/dL 70-110 TESTED AT [facility] [place] [address] POCT-GLUCOSE [id number] 11:36:00* Test Item Value Reference Range Comments POC-GLUCOSE METER (BEAKER) (test pmxv=1641) 226 mg/dL 70-110 TESTED AT [place] [address] [place] [address] VANCOMYCIN LEVEL, [id number] 10:05:00* Test Item Value Reference Range Comments VANCOMYCIN TROUGH (BEAKER) (test fssy=808) 23.7 ug/mL 10.0-20.0 POCT-GLUCOSE [id number] 06:17:00* Test Item Value Reference Range Comments POC-GLUCOSE METER (BEAKER) (test jmjs=1198) 346 mg/dL 70-110 Notified MAGGIE DEMARCO/TESTED AT [facility] [address] [place] [address] POCT-GLUCOSE [id number] 20:16:00* Test Item Value Reference Range Comments POC-GLUCOSE METER (BEAKER) (test iqot=2015) 340 mg/dL 70-110 Notified MAGGIE DEMARCO/TESTED AT [place] [address] [place] [address] SEDIMENTATION [id number] 20:10:00* Test Item Value Reference Range Comments SEDIMENTATION RATE, ERYTHROCYTE (BEAKER) (test qmxc=055) 113 mm/HR 0-20 C-REACTIVE [id number] 19:27:00* Test Item Value Reference Range Comments C-REACTIVE PROTEIN (BEAKER) (test tvmh=708) 10.16 mg/dL 0.00-1.00 POCT-GLUCOSE [id number] 18:13:00* Test Item Value Reference Range Comments POC-GLUCOSE METER (BEAKER) (test xthw=7020) 204 mg/dL 70-110 TESTED AT [place] [address] [place] [address] POCT-GLUCOSE [id number] 16:31:00* Test Item Value Reference Range Comments POC-GLUCOSE METER (BEAKER) (test dqao=3623) 184 mg/dL 70-110 TESTED AT [place] [address] [place] [address] BASIC METABOLIC [id number] 11:06:00* Test Item Value Reference Range Comments SODIUM (BEAKER) (test muqd=455) 135 meq/L 135-148 POTASSIUM (BEAKER) (test bxsi=803) 4.2 meq/L 3.6-5.5 CHLORIDE (BEAKER) (test olxn=414) 102 meq/L 98-106 CO2 (BEAKER) (test srob=275) 23 meq/L 20-29 BLOOD UREA NITROGEN (BEAKER) (test hbwk=976) 12 mg/dL 10-26 CREATININE (BEAKER) (test wwva=470) 1.03 mg/dL 0.50-1.20 GLUCOSE RANDOM (BEAKER) (test vzrx=741) 159 mg/dL 70-110 CALCIUM (BEAKER) (test vxox=206) 8.7 mg/dL 8.5-10.5 EGFR (BEAKER) (test viyc=6547) 75 mL/min/1.73 sq m ESTIMATED GFR IS NOT ACCURATE CREATININE CLEARANCE IN PREDICTING GLOMERULAR FILTRATION RATE. ESTIMATED GFR IS NOT APPLICABLE FOR DIALYSIS PATIENTS. POCT-GLUCOSE [id number] 06:15:00* Test Item Value Reference Range Comments POC-GLUCOSE METER (BEAKER) (test eqxq=8414) 181 mg/dL 70-110 TESTED AT [facility] [place] [address] VANCOMYCIN LEVEL, [id number] 20:55:00* Test Item Value Reference Range Comments VANCOMYCIN TROUGH (BEAKER) (test rqsw=744) 21.3 ug/mL 10.0-20.0 POCT-GLUCOSE [id number] 20:47:00* Test Item Value Reference Range Comments POC-GLUCOSE METER (BEAKER) (test erme=8164) 115 mg/dL 70-110 TESTED AT [facility] [place] [place] [address] POCT-GLUCOSE [id number] 17:02:00* Test Item Value Reference Range Comments POC-GLUCOSE METER (BEAKER) (test mzbd=4193) 104 mg/dL 70-110 TESTED AT [facility] [place] [address] POCT-GLUCOSE [id number] 11:50:00* Test Item Value Reference Range Comments POC-GLUCOSE METER (BEAKER) (test xify=3055) 122 mg/dL 70-110 TESTED AT [facility] [place] [address] POCT-GLUCOSE [id number] 06:24:00* Test Item Value Reference Range Comments POC-GLUCOSE METER (BEAKER) (test jbcr=5104) 91 mg/dL 70-110 TESTED AT [facility] [place] [address] POCT-GLUCOSE [id number] 20:35:00* Test Item Value Reference Range Comments POC-GLUCOSE METER (BEAKER) (test vgdt=5914) 196 mg/dL 70-110 TESTED AT [facility] [address] [place] [address] POCT-GLUCOSE [id number] 17:06:00* Test Item Value Reference Range Comments POC-GLUCOSE METER (BEAKER) (test cbkj=9842) 191 mg/dL 70-110 TESTED AT [facility] [address] [place] [address] POCT-GLUCOSE [id number] 11:49:00* Test Item Value Reference Range Comments POC-GLUCOSE METER (BEAKER) (test plyt=3078) 221 mg/dL 70-110 TESTED AT [facility] [place] [address] POCT-GLUCOSE [id number] 06:37:00* Test Item Value Reference Range Comments POC-GLUCOSE METER (BEAKER) (test buxx=6656) 210 mg/dL 70-110 TESTED AT [facility] [address] [place] [address] BASIC METABOLIC [id number] 05:52:00* Test Item Value Reference Range Comments SODIUM (BEAKER) (test zhli=433) 134 meq/L 135-148 POTASSIUM (BEAKER) (test jfdu=398) 4.2 meq/L 3.6-5.5 CHLORIDE (BEAKER) (test gngp=350) 104 meq/L 98-106 CO2 (BEAKER) (test gfhi=558) 19 meq/L 20-29 BLOOD UREA NITROGEN (BEAKER) (test xiia=828) 13 mg/dL 10-26 CREATININE (BEAKER) (test lpvt=548) 1.20 mg/dL 0.50-1.20 GLUCOSE RANDOM (BEAKER) (test fthv=333) 196 mg/dL 70-110 CALCIUM (BEAKER) (test wiys=840) 8.4 mg/dL 8.5-10.5 EGFR (BEAKER) (test cydk=1969) 63 mL/min/1.73 sq m ESTIMATED GFR IS NOT ACCURATE CREATININE CLEARANCE IN PREDICTING GLOMERULAR FILTRATION RATE. ESTIMATED GFR IS NOT APPLICABLE FOR DIALYSIS PATIENTS. CBC (HEMOGRAM ONLY)2017-08-03 05:33:00* Test Item Value Reference Range Comments WHITE BLOOD CELL COUNT (BEAKER) (test qixn=160) 9.5 K/ L 4.0-10.0 RED BLOOD CELL COUNT (BEAKER) (test ywup=680) 4.36 M/ L 4.20-5.80 HEMOGLOBIN (BEAKER) (test lyxr=241) 9.8 GM/DL 13.0-16.8 HEMATOCRIT (BEAKER) (test yghr=717) 31.6 % 40.0-50.0 MEAN CORPUSCULAR VOLUME (BEAKER) (test qeri=094) 72.5 fL 82.0-98.0 MEAN CORPUSCULAR HEMOGLOBIN (BEAKER) (test oaei=523) 22.5 pg 27.0-33.0 MEAN CORPUSCULAR HEMOGLOBIN CONC (BEAKER) (test tnvp=628) 31.0 GM/DL 32.0-36.0 RED CELL DISTRIBUTION WIDTH (BEAKER) (test ewuv=054) 19.2 % 10.3-14.2 PLATELET COUNT (BEAKER) (test rqsr=582) 412 K/CU MM 150-430 MEAN PLATELET VOLUME (BEAKER) (test gpph=502) 8.9 fL 6.5-10.5 NUCLEATED RED BLOOD CELLS (BEAKER) (test gphf=268) 0 /100 WBC 0-0 VANCOMYCIN LEVEL, [id number] 21:28:00* Test Item Value Reference Range Comments VANCOMYCIN TROUGH (BEAKER) (test gryt=357) 19.2 ug/mL 10.0-20.0 POCT-GLUCOSE [id number] 20:56:00* Test Item Value Reference Range Comments POC-GLUCOSE METER (BEAKER) (test entf=9554) 171 mg/dL 70-110 TESTED AT [facility] [place] [address] MRSA [id number] 17:43:00* Test Item Value Reference Range Comments CULTURE (BEAKER) (test nxoy=2750) No MRSA isolated POCT-GLUCOSE [id number] 12:17:00* Test Item Value Reference Range Comments POC-GLUCOSE METER (BEAKER) (test swil=3039) 172 mg/dL 70-110 TESTED AT [facility] [place] [address] POCT-GLUCOSE [id number] 07:20:00* Test Item Value Reference Range Comments POC-GLUCOSE METER (BEAKER) (test nlfx=4458) 184 mg/dL 70-110 TESTED AT [facility] [place] [address] C-REACTIVE [id number] 05:53:00* Test Item Value Reference Range Comments C-REACTIVE PROTEIN (BEAKER) (test uffv=215) 4.33 mg/dL 0.00-1.00 POCT-GLUCOSE [id number] 21:08:00* Test Item Value Reference Range Comments POC-GLUCOSE METER (BEAKER) (test mzxx=1059) 206 mg/dL 70-110 TESTED AT [address] [place] [address] BONE AND/OR JOINT IMAGING, [id number] 18:00:00R/O Left ankle osteomyelitisFINAL REPORT PROCEDURE: 3-PHASE BONE SCAN CPT CODE: 83351 INDICATION: left ankle osteomyelitis PROTOCOL: 25.1 mCi [...] were available for comparison/correlation. Signed: Lonny Manzanares MDReport Verified Date/Time: 08/01/2017 18:00:44 - GLUCOSE [id number] 17:06:00* Test Item Value Reference Range Comments POC-GLUCOSE METER (BEAKER) (test ccie=9378) 166 mg/dL 70-110 TESTED AT [facility] [place] [address] ARTERIAL DOPPLER LEGS, [id number] 16:45:00Reason for exam:->CADFINAL REPORT Bilateral lower extremity arterial ultrasound. COMPARISON STUDY: None available. TECHNIQUE: Grayscale, color-flow, duplex Do ppler and spectral analysis of the major vascular structures in both lower extre mities was performed. FINDINGS: Biphasic waveform is seen in the right lower ext remity from the common femoral artery to the posterior tibial artery, anterior t ibial artery, peroneal artery and dorsalis pedis artery. On the left side, monop hasic waveform is seen from the common femoral artery to the peroneal artery, po sterior tibial artery, anterior tibial artery and dorsalis pedis artery. Signifi cant plaque is seen bilaterally. IMPRESSION:1. Diffuse biphasic waveforms throug hout the right lower extremity and monophasic waveforms in the left lower extrem ity with significant plaque bilaterally. A three vessel runoff is noted bilatera lly. Signed: Vini Zavala MDReport Verified Date/Time: 08/01/2017 16:45:03 R eading Location: [address] Body Reading Room -GLUCOSE [id number] 11:57:00* Test Item Value Reference Range Comments POC-GLUCOSE METER (BEAKER) (test pyhm=5059) 115 mg/dL 70-110 TESTED AT [facility] [place] [address] WOUND CULTURE + GRAM [id number] 11:10:00* Test Item Value Reference Range Comments CULTURE (BEAKER) (test irzt=5160) No growth GRAM STAIN RESULT (BEAKER) (test izgf=6973) 1+ WBCs GRAM STAIN RESULT (BEAKER) (test suak=43988) No organisms seen VANCOMYCIN LEVEL, [id number] 06:32:00* Test Item Value Reference Range Comments VANCOMYCIN TROUGH (BEAKER) (test phuv=210) 20.8 ug/mL 10.0-20.0 BASIC METABOLIC [id number] 06:29:00* Test Item Value Reference Range Comments SODIUM (BEAKER) (test ctpi=421) 139 meq/L 135-148 POTASSIUM (BEAKER) (test oqmc=426) 3.7 meq/L 3.6-5.5 CHLORIDE (BEAKER) (test dpvj=161) 105 meq/L 98-106 CO2 (BEAKER) (test iqsl=690) 25 meq/L 20-29 BLOOD UREA NITROGEN (BEAKER) (test npjf=427) 11 mg/dL 10-26 CREATININE (BEAKER) (test zerf=283) 1.00 mg/dL 0.50-1.20 GLUCOSE RANDOM (BEAKER) (test ymhy=920) 110 mg/dL 70-110 CALCIUM (BEAKER) (test hdnd=618) 8.6 mg/dL 8.5-10.5 EGFR (BEAKER) (test mqkm=6543) 78 mL/min/1.73 sq m ESTIMATED GFR IS NOT ACCURATE CREATININE CLEARANCE IN PREDICTING GLOMERULAR FILTRATION RATE. ESTIMATED GFR IS NOT APPLICABLE FOR DIALYSIS PATIENTS. C-REACTIVE [id number] 06:27:00* Test Item Value Reference Range Comments C-REACTIVE PROTEIN (BEAKER) (test lmey=163) 7.08 mg/dL 0.00-1.00 CBC W/PLT COUNT & AUTO [id number] 06:09:00* Test Item Value Reference Range Comments WHITE BLOOD CELL COUNT (BEAKER) (test saoo=009) 5.5 K/ L 4.0-10.0 RED BLOOD CELL COUNT (BEAKER) (test rqfv=816) 4.24 M/ L 4.20-5.80 HEMOGLOBIN (BEAKER) (test nogv=622) 9.5 GM/DL 13.0-16.8 HEMATOCRIT (BEAKER) (test yzbs=566) 30.5 % 40.0-50.0 MEAN CORPUSCULAR VOLUME (BEAKER) (test lpvw=204) 71.9 fL 82.0-98.0 MEAN CORPUSCULAR HEMOGLOBIN (BEAKER) (test jvql=994) 22.4 pg 27.0-33.0 MEAN CORPUSCULAR HEMOGLOBIN CONC (BEAKER) (test xqgh=566) 31.1 GM/DL 32.0-36.0 RED CELL DISTRIBUTION WIDTH (BEAKER) (test dllq=615) 18.4 % 10.3-14.2 PLATELET COUNT (BEAKER) (test rhiu=330) 323 K/CU MM 150-430 MEAN PLATELET VOLUME (BEAKER) (test tleh=432) 8.9 fL 6.5-10.5 NUCLEATED RED BLOOD CELLS (BEAKER) (test zotx=549) 0 /100 WBC 0-0 NEUTROPHILS RELATIVE PERCENT (BEAKER) (test xixy=633) 58 % LYMPHOCYTES RELATIVE PERCENT (BEAKER) (test rtht=633) 25 % MONOCYTES RELATIVE PERCENT (BEAKER) (test mszm=751) 12 % EOSINOPHILS RELATIVE PERCENT (BEAKER) (test ficr=019) 4 % BASOPHILS RELATIVE PERCENT (BEAKER) (test cplo=039) 1 % NEUTROPHILS ABSOLUTE COUNT (BEAKER) (test smbg=283) 3.19 K/ L 1.80-8.00 LYMPHOCYTES ABSOLUTE COUNT (BEAKER) (test fzuj=427) 1.40 K/ L 1.48-4.50 MONOCYTES ABSOLUTE COUNT (BEAKER) (test nrqt=204) 0.66 K/ L 0.00-1.30 EOSINOPHILS ABSOLUTE COUNT (BEAKER) (test wtil=912) 0.24 K/ L 0.00-0.50 BASOPHILS ABSOLUTE COUNT (BEAKER) (test popf=657) 0.03 K/ L 0.00-0.20 POCT-GLUCOSE [id number] 06:05:00* Test Item Value Reference Range Comments POC-GLUCOSE METER (BEAKER) (test cqqh=4206) 128 mg/dL 70-110 TESTED AT [facility] [place] [address] POCT-GLUCOSE [id number] 20:41:00* Test Item Value Reference Range Comments POC-GLUCOSE METER (BEAKER) (test fcxg=6703) 159 mg/dL 70-110 TESTED AT [facility] [place] [address] Culture, [id number] 20:21:00* Test Item Value Reference Range Comments Culture, Blood (test code=BC) NG5 VANCOMYCIN LEVEL, [id number] 17:52:00* Test Item Value Reference Range Comments VANCOMYCIN TROUGH (BEAKER) (test opnt=350) < ug/mL 10.0-20.0 POCT-GLUCOSE [id number] 17:12:00* Test Item Value Reference Range Comments POC-GLUCOSE METER (BEAKER) (test kvum=9701) 132 mg/dL 70-110 TESTED AT [facility] [place] [address] Culture, [id number] 14:48:00* Test Item Value Reference Range Comments Culture, Blood (test code=BC) NG5 ONLY ANAEROBIC BOTTLE RECIEVEDPOCT-GLUCOSE [id number] 12:23:00* Test Item Value Reference Range Comments POC-GLUCOSE METER (BEAKER) (test nkry=9379) 137 mg/dL 70-110 TESTED AT [facility] [place] [address] SEDIMENTATION [id number] 06:09:00* Test Item Value Reference Range Comments SEDIMENTATION RATE, ERYTHROCYTE (BEAKER) (test ipmd=223) 118 mm/HR 0-20 CBC W/PLT COUNT & AUTO [id number] 06:09:00* Test Item Value Reference Range Comments WHITE BLOOD CELL COUNT (BEAKER) (test rvlt=412) 5.2 K/ L 4.0-10.0 RED BLOOD CELL COUNT (BEAKER) (test vzsl=446) 4.07 M/ L 4.20-5.80 HEMOGLOBIN (BEAKER) (test tczm=493) 9.3 GM/DL 13.0-16.8 HEMATOCRIT (BEAKER) (test eeqm=531) 29.2 % 40.0-50.0 MEAN CORPUSCULAR VOLUME (BEAKER) (test xrvy=421) 71.7 fL 82.0-98.0 MEAN CORPUSCULAR HEMOGLOBIN (BEAKER) (test qrek=214) 22.9 pg 27.0-33.0 MEAN CORPUSCULAR HEMOGLOBIN CONC (BEAKER) (test drkr=928) 31.8 GM/DL 32.0-36.0 RED CELL DISTRIBUTION WIDTH (BEAKER) (test fmmj=413) 19.5 % 10.3-14.2 PLATELET COUNT (BEAKER) (test bbya=292) 339 K/CU MM 150-430 MEAN PLATELET VOLUME (BEAKER) (test qvtd=136) 9.2 fL 6.5-10.5 (MANUAL DIFFERENTIAL)2017-07-31 06:09:00* Test Item Value Reference Range Comments NEUTROPHILS - REL (DIFF) (BEAKER) (test xrwg=4977) 61 % LYMPHOCYTES - REL (DIFF) (BEAKER) (test vfzy=9118) 24 % MONOCYTES - REL (DIFF) (BEAKER) (test ugms=2092) 6 % EOSINOPHILS - REL (DIFF) (BEAKER) (test sttb=8135) 4 % METAMYELOCYTES-REL (DIFF) (BEAKER) (test eojs=478) 2 % 0-0 BANDS - REL (DIFF) (BEAKER) (test tabb=2930) 3 % 0-10 NEUTROPHILS - ABS (DIFF) (BEAKER) (test mgqg=4665) 3.17 K/ L 1.80-8.00 LYMPHOCYTES - ABS (DIFF) (BEAKER) (test xdmv=3688) 1.25 K/ L 1.48-4.50 MONOCYTES - ABS (DIFF) (BEAKER) (test meei=3546) 0.31 K/ L 0.00-1.30 EOSINOPHILS - ABS (DIFF) (BEAKER) (test rpuf=4141) 0.21 K/ L 0.00-0.50 METAMYELOCTYES - ABS (DIFF) (BEAKER) (test tmeb=631) 0.10 K/ L 0.00-0.00 BANDS-ABS (DIFF) (BEAKER) (test hnzd=6346) 0.2 K/ L 0.0-0.8 TOTAL COUNTED (BEAKER) (test ssmj=2540) 100 BANDS + SEGMENTED NEUTROPHILS (BEAKER) (test gunp=0628) 3.33 WBC MORPHOLOGY (BEAKER) (test ocza=445) Normal PLT MORPHOLOGY (BEAKER) (test vecd=017) Normal ANISOCYTOSIS (BEAKER) (test edtk=516) 1+ few HYPOCHROMIA (BEAKER) (test usav=407) 1+ few MICROCYTES (BEAKER) (test nbob=046) 1+ few POLYCHROMATOPHILLIC RBCS(BEAKER) (test mzve=938) 1+ few C-REACTIVE [id number] 05:44:00* Test Item Value Reference Range Comments C-REACTIVE PROTEIN (BEAKER) (test pfzo=009) 11.89 mg/dL 0.00-1.00 BASIC METABOLIC [id number] 05:43:00* Test Item Value Reference Range Comments SODIUM (BEAKER) (test imbu=699) 141 meq/L 135-148 POTASSIUM (BEAKER) (test fdqv=340) 3.8 meq/L 3.6-5.5 CHLORIDE (BEAKER) (test ceqm=706) 107 meq/L 98-106 CO2 (BEAKER) (test gweo=550) 21 meq/L 20-29 BLOOD UREA NITROGEN (BEAKER) (test kgfj=794) 12 mg/dL 10-26 CREATININE (BEAKER) (test tzkr=669) 1.02 mg/dL 0.50-1.20 GLUCOSE RANDOM (BEAKER) (test ujut=598) 104 mg/dL 70-110 CALCIUM (BEAKER) (test wsee=109) 9.2 mg/dL 8.5-10.5 EGFR (BEAKER) (test abvi=9314) 76 mL/min/1.73 sq m ESTIMATED GFR IS NOT ACCURATE CREATININE CLEARANCE IN PREDICTING GLOMERULAR FILTRATION RATE. ESTIMATED GFR IS NOT APPLICABLE FOR DIALYSIS PATIENTS. POCT-GLUCOSE [id number] 20:25:00* Test Item Value Reference Range Comments POC-GLUCOSE METER (BEAKER) (test xmlr=9843) 158 mg/dL 70-110 TESTED AT [facility] [place] [id number] POCT-GLUCOSE [id number] 12:28:00* Test Item Value Reference Range Comments POC-GLUCOSE METER (BEAKER) (test pxys=4823) 128 mg/dL 70-110 TESTED AT [facility] [place] [address] POCT-GLUCOSE [id number] 06:23:00* Test Item Value Reference Range Comments POC-GLUCOSE METER (BEAKER) (test zgwp=5229) 87 mg/dL 70-110 TESTED AT [facility] [place] [address] COMPREHENSIVE METABOLIC [id number] 04:32:00* Test Item Value Reference Range Comments TOTAL PROTEIN (BEAKER) (test qapx=496) 6.1 gm/dL 6.0-8.5 ALBUMIN (BEAKER) (test wttd=9308) 3.0 g/dL 3.5-5.0 ALKALINE PHOSPHATASE (BEAKER) (test gxac=276) 51 U/L 30-115 BILIRUBIN TOTAL (BEAKER) (test urse=934) 0.4 mg/dL 0.1-1.2 SODIUM (BEAKER) (test ejwz=614) 139 meq/L 135-148 POTASSIUM (BEAKER) (test eyfm=581) 3.8 meq/L 3.6-5.5 CHLORIDE (BEAKER) (test bxal=615) 105 meq/L 98-106 CO2 (BEAKER) (test cjjs=094) 20 meq/L 20-29 BLOOD UREA NITROGEN (BEAKER) (test plep=886) 12 mg/dL 10-26 CREATININE (BEAKER) (test uswo=039) 1.17 mg/dL 0.50-1.20 GLUCOSE RANDOM (BEAKER) (test ttdu=387) 95 mg/dL 70-110 CALCIUM (BEAKER) (test riav=680) 9.2 mg/dL 8.5-10.5 AST (SGOT) (BEAKER) (test hkkl=832) 12 U/L 5-40 ALT (SGPT) (BEAKER) (test leww=532) 11 U/L 5-50 EGFR (BEAKER) (test sjbd=7480) 65 mL/min/1.73 sq m ESTIMATED GFR IS NOT ACCURATE CREATININE CLEARANCE IN PREDICTING GLOMERULAR FILTRATION RATE. ESTIMATED GFR IS NOT APPLICABLE FOR DIALYSIS PATIENTS. VANCOMYCIN LEVEL, [id number] 04:30:00* Test Item Value Reference Range Comments VANCOMYCIN TROUGH (BEAKER) (test prpo=159) 9.7 ug/mL 10.0-20.0 CBC W/PLT COUNT & AUTO YCHXZWGNRIZL5534-74-47 04:11:00* Test Item Value Reference Range Comments WHITE BLOOD CELL COUNT (BEAKER) (test nkrp=487) 5.2 K/ L 4.0-10.0 RED BLOOD CELL COUNT (BEAKER) (test sfmg=691) 4.10 M/ L 4.20-5.80 HEMOGLOBIN (BEAKER) (test kqrd=819) 9.4 GM/DL 13.0-16.8 HEMATOCRIT (BEAKER) (test pekv=465) 30.1 % 40.0-50.0 MEAN CORPUSCULAR VOLUME (BEAKER) (test tlmq=324) 73.4 fL 82.0-98.0 MEAN CORPUSCULAR HEMOGLOBIN (BEAKER) (test hbjx=859) 22.9 pg 27.0-33.0 MEAN CORPUSCULAR HEMOGLOBIN CONC (BEAKER) (test rfuz=841) 31.2 GM/DL 32.0-36.0 RED CELL DISTRIBUTION WIDTH (BEAKER) (test afwd=180) 18.9 % 10.3-14.2 PLATELET COUNT (BEAKER) (test ognm=342) 298 K/CU MM 150-430 MEAN PLATELET VOLUME (BEAKER) (test jyzi=836) 9.0 fL 6.5-10.5 NUCLEATED RED BLOOD CELLS (BEAKER) (test judq=892) 0 /100 WBC 0-0 NEUTROPHILS RELATIVE PERCENT (BEAKER) (test wceh=594) 61 % LYMPHOCYTES RELATIVE PERCENT (BEAKER) (test pqcv=473) 25 % MONOCYTES RELATIVE PERCENT (BEAKER) (test qkpv=225) 10 % EOSINOPHILS RELATIVE PERCENT (BEAKER) (test klex=798) 4 % BASOPHILS RELATIVE PERCENT (BEAKER) (test mfvu=973) 0 % NEUTROPHILS ABSOLUTE COUNT (BEAKER) (test jqhm=713) 3.17 K/ L 1.80-8.00 LYMPHOCYTES ABSOLUTE COUNT (BEAKER) (test hmuj=537) 1.31 K/ L 1.48-4.50 MONOCYTES ABSOLUTE COUNT (BEAKER) (test awdy=298) 0.51 K/ L 0.00-1.30 EOSINOPHILS ABSOLUTE COUNT (BEAKER) (test vppv=852) 0.20 K/ L 0.00-0.50 BASOPHILS ABSOLUTE COUNT (BEAKER) (test urjl=958) 0.02 K/ L 0.00-0.20 Awdczvtx1358-00-40 21:49:00* Test Item Value Reference Range Comments Accuchek (test code=ACU) 110 mg/dL 70-110 Erplhbjs6650-15-72 17:11:00* Test Item Value Reference Range Comments Accuchek (test code=ACU) 118 mg/dL 70-110 Bacterial Ljbtzta7699-39-20 12:47:00* Test Item Value Reference Range Comments Bacterial Culture (test code=BACTC) No penicillin, cephalosporin, or vancomycin resistance has Bacterial Culture (test code=BACTC1) necessary. Bacterial Culture (test code=BACTC1) GS Bacterial Culture (test code=BACTC1) MO GPC O:STAGA (test code=STAGA) Streptococcus agalactiae Gp. B Bacterial Culture (test code=BACTC1.1) QUANTITATION: Bacterial Culture (test code=BACTC1.1) Many O:ALCSPE (test code=ALCSPE) Alcaligenes faecalis ssp faeca Amikacin (test code=AN) 8 Ceftazidime (test code=CAZV) 4 Ceftriaxone (test code=RECORDER HELPER SEISMOGRAPH) <=1 Ciprofloxacin (test code=CIP) 1 Gentamicin (test code=GMV) 4 Levofloxacin (test code=LEV) 1 Piperacillin/Tazobactam (test code=TZP) <=4 Tobramycin (test code=TM) 2 Trimethoprim/Sulfamethoxazole (test code=SXTV) <=20 Bacterial Culture (test code=BACTC1.2) QUANTITATION: Bacterial Culture (test code=BACTC1.2) Moderate O:PSAER (test code=PSAER) Pseudomonas aeruginosa Amikacin (test code=AN) <=2 Cefepime (test code=FEP) 8 Ceftazidime (test code=CAZV) 4 Ciprofloxacin (test code=CIP) 2 Gentamicin (test code=GMV) <=1 Levofloxacin (test code=LEV) >=8 Meropenem (test code=MEM) <=0.25 Piperacillin/Tazobactam (test code=TZP) 32 Tobramycin (test code=TM) <=1 Aztreonam (test code=ATMKB) Bacterial Culture (test code=BACTC1.3) QUANTITATION: Bacterial Culture (test code=BACTC1.3) Moderate Comment left inner foot suture iyhpIvpasmhc7529-84-39 11:52:00* Test Item Value Reference Range Comments Accuchek (test code=ACU) 109 mg/dL 70-110 Qoejmmtpt0724-02-63 11:32:00* Test Item Value Reference Range Comments Chemistry (test code=VANCT-T) 19.7 ug/mL Vancomycin Trough Level Goal -Indication Goal trough levelBILINGUAL ACCOUNT MANAGER Infections 20 - 30 mcg/mLSepsis, Bacteremia, endocarditis,neutropenic fever, osteomyelitiscomplicated cellulitis, pneumonia 15 - 25 mcg/mLEmpiric therapy 15 - 20 mcg/mLOther infections 10 - 20 mcg/mLNote: For ASHLEE > 1 consider using another antibiotic agent. Zwotxqeon5350-52-66 09:20:00* Test Item Value Reference Range Comments Chemistry (test code=NA-T) 139 mmol/L 136-145 Chemistry (test code=K-T) 4.5 mmol/L 3.5-5.1 Chemistry (test code=CL) 107 mmol/L 98-107 Chemistry (test code=CO2) 16 mmol/L 22-29 Chemistry (test code=ANGP) 21 mmol/L 10-20 Chemistry (test code=BUN) 13 mg/dL 8.4-25.7 Chemistry (test code=CREATT) 1.44 mg/dL 0.6-1.3 Chemistry (test code=EGFRMDRD) 51 Reference Range for Estimated GFR: Greater than 90 mL/min/1.73 m2NOTE:The MDRD equation has not been validated for use with theelderly (over 70 years of age), women, patien tswith serious comorbid condition or persons with extremes ofbody size, muscle mass, or nutritional status. Chemistry (test code=GLU-T) 112 mg/dL 70-105 Chemistry (test code=CA) 8.9 mg/dL 7.8-10.44 Gaqqathhip1805-77-75 06:35:00* Test Item Value Reference Range Comments Hematology (test code=WBCT) 6.9 thou/uL 4.8-10.8 Hematology (test code=RBCT) 3.92 mill/uL 4.70-6.10 Hematology (test code=HGBT) 9.3 g/dL 14.0-18.0 Hematology (test code=HCTT) 29.3 % 42.0-52.0 Hematology (test code=MCV) 74.8 fl 80.0-94.0 Hematology (test code=MCH) 23.7 pg 27.0-31.0 Hematology (test code=MCHC) 31.7 g/dL 32.0-36.0 Hematology (test code=RDW) 18.3 % 11.5-14.5 Hematology (test code=PLTT) 254 thou/uL 130-400 Hematology (test code=MPV) 7.9 fL 7.4-10.4 Hematology (test code=%NEUT) 65.7 % 42.0-75.0 Hematology (test code=%LYMPH) 21.0 % 21.0-51.0 Hematology (test code=%MONO) 11.9 % 0.0-10.0 Hematology (test code=%EOS) 1.3 % 0.0-10.0 Hematology (test code=%BASO) 0.2 % 0.0-1.0 Hematology (test code=NEUT#) 4.6 thou/uL 1.40-6.50 Hematology (test code=LYMPH#) 1.5 thou/uL 1.20-3.40 Hematology (test code=MONO#) 0.8 thou/uL 0.11-0.59 Hematology (test code=EOS#) 0.1 thou/uL 0.0-0.7 Hematology (test code=BASO#) 0.0 thou/uL 0.0-0.2 Comment please add on to njwnCmhnswtt5926-96-98 06:12:00* Test Item Value Reference Range Comments Accuchek (test code=ACU) 113 mg/dL 70-110 Lguolaub9053-73-05 02:42:00* Test Item Value Reference Range Comments Accuchek (test code=ACU) 115 mg/dL 70-110 Xuhvirnd3189-81-91 21:14:00* Test Item Value Reference Range Comments Accuchek (test code=ACU) 89 mg/dL 70-110 Havqrocj1408-01-74 16:37:00* Test Item Value Reference Range Comments Accuchek (test code=ACU) 102 mg/dL 70-110 Rypxvcyv7476-32-21 11:15:00* Test Item Value Reference Range Comments Accuchek (test code=ACU) 106 mg/dL 70-110 Chemistry - Wivftcow6875-25-78 09:31:00* Test Item Value Reference Range Comments Chemistry - Specials (test code=MARIO) 267.17 ng/mL 22-322 Comment please add on to coiaHbhpknmmn5692-33-96 09:12:00* Test Item Value Reference Range Comments Chemistry (test code=IRON) 11 ug/dL 65-175 Comment please add on to pregXfyfvpase8729-76-67 09:12:00* Test Item Value Reference Range Comments Chemistry (test code=TIBC) 166 mcg/dL 261-462 Comment please add on to AM elzbBwdtyfnu3913-95-86 07:28:00* Test Item Value Reference Range Comments Accuchek (test code=ACU) 63 mg/dL 70-110 Wwctrjju3356-54-42 06:35:00* Test Item Value Reference Range Comments Accuchek (test code=ACU) 56 mg/dL 70-110 Xfofrxdgeg9142-82-44 04:32:00* Test Item Value Reference Range Comments Hematology (test code=WBCT) 6.3 thou/uL 4.8-10.8 Hematology (test code=RBCT) 4.04 mill/uL 4.70-6.10 Hematology (test code=HGBT) 9.6 g/dL 14.0-18.0 Hematology (test code=HCTT) 30.9 % 42.0-52.0 Hematology (test code=MCV) 76.4 fl 80.0-94.0 Hematology (test code=MCH) 23.9 pg 27.0-31.0 Hematology (test code=MCHC) 31.3 g/dL 32.0-36.0 Hematology (test code=RDW) 18.4 % 11.5-14.5 Hematology (test code=PLTT) 232 thou/uL 130-400 Hematology (test code=MPV) 8.5 fL 7.4-10.4 Hematology (test code=%NEUT) 61.5 % 42.0-75.0 Hematology (test code=%LYMPH) 23.2 % 21.0-51.0 Hematology (test code=%MONO) 11.1 % 0.0-10.0 Hematology (test code=%EOS) 3.2 % 0.0-10.0 Hematology (test code=%BASO) 0.9 % 0.0-1.0 Hematology (test code=NEUT#) 3.9 thou/uL 1.40-6.50 Hematology (test code=LYMPH#) 1.5 thou/uL 1.20-3.40 Hematology (test code=MONO#) 0.7 thou/uL 0.11-0.59 Hematology (test code=EOS#) 0.2 thou/uL 0.0-0.7 Hematology (test code=BASO#) 0.1 thou/uL 0.0-0.2 Comment please add on to AM lgmoDzgezqgbz9834-69-58 23:40:00* Test Item Value Reference Range Comments Chemistry (test code=VANCT-T) 8.9 ug/mL Vancomycin Trough Level Goal -Indication Goal trough levelBILINGUAL ACCOUNT MANAGER Infections 20 - 30 mcg/mLSepsis, Bacteremia, endocarditis,neutropenic fever, osteomyelitiscomplicated cellulitis, pneumonia 15 - 25 mcg/mLEmpiric therapy 15 - 20 mcg/mLOther infections 10 - 20 mcg/mLNote: For ASHLEE > 1 consider using another antibiotic agent. Vjdvonyj8431-33-61 20:53:00* Test Item Value Reference Range Comments Accuchek (test code=ACU) 80 mg/dL 70-110 Tjxalxku4886-84-41 16:59:00* Test Item Value Reference Range Comments Accuchek (test code=ACU) 95 mg/dL 70-110 Qrkaretgx5848-55-94 11:37:00* Test Item Value Reference Range Comments Chemistry (test code=CRP) 26.49 mg/dL =or < 0.5 What test does the doctor want? C-REACTIVE PROTEIN (CRP)Zifvwcvrca9358-76-20 11:27:00* Test Item Value Reference Range Comments Hematology (test code=SED) 84 mm/hr Less than 20 Ylpbzkbn2131-57-50 11:19:00* Test Item Value Reference Range Comments Accuchek (test code=ACU) 138 mg/dL 70-110 Joseqpxje8659-68-46 10:44:00* Test Item Value Reference Range Comments Chemistry (test code=TROPI-T) 0.115 ng/mL < 0.028 Reference Range 0.00 - 0.028 ng/mL Negative 0.029 - 0.29 ng/mL Indeterminate Greater or Equal to 0.3 ng/mL Strongly suggests [place] Comment please add on to AM ymhcPneyksajiv6738-02-78 08:32:00* Test Item Value Reference Range Comments Hematology (test code=WBCT) 6.9 thou/uL 4.8-10.8 Hematology (test code=RBCT) 3.81 mill/uL 4.70-6.10 Hematology (test code=HGBT) 9.1 g/dL 14.0-18.0 Hematology (test code=HCTT) 28.9 % 42.0-52.0 Hematology (test code=MCV) 75.9 fl 80.0-94.0 Hematology (test code=MCH) 23.8 pg 27.0-31.0 Hematology (test code=MCHC) 31.4 g/dL 32.0-36.0 Hematology (test code=RDW) 18.4 % 11.5-14.5 Hematology (test code=PLTT) 218 thou/uL 130-400 Hematology (test code=MPV) 9.5 fL 7.4-10.4 Hematology (test code=%NEUT) 67.2 % 42.0-75.0 Hematology (test code=%LYMPH) 15.9 % 21.0-51.0 Hematology (test code=%MONO) 14.4 % 0.0-10.0 Hematology (test code=%EOS) 1.9 % 0.0-10.0 Hematology (test code=%BASO) 0.5 % 0.0-1.0 Hematology (test code=NEUT#) 4.7 thou/uL 1.40-6.50 Hematology (test code=LYMPH#) 1.1 thou/uL 1.20-3.40 Hematology (test code=MONO#) 1.0 thou/uL 0.11-0.59 Hematology (test code=EOS#) 0.1 thou/uL 0.0-0.7 Hematology (test code=BASO#) 0.0 thou/uL 0.0-0.2 IbispxfKqfuloti5699-99-10 06:38:00* Test Item Value Reference Range Comments Accuchek (test code=ACU) 82 mg/dL 70-110 Abmfjxci9004-73-23 21:16:00* Test Item Value Reference Range Comments Accuchek (test code=ACU) 121 mg/dL 70-110 Zugxyrsn0353-51-14 17:06:00* Test Item Value Reference Range Comments Accuchek (test code=ACU) 146 mg/dL 70-110 Zgziixwgm1006-92-23 15:39:00* Test Item Value Reference Range Comments Chemistry (test code=CKMBM-T) 2.8 ng/mL 0-6.6 Chemistry (test code=TROPI-T) 0.136 ng/mL < 0.028 Reference Range 0.00 - 0.028 ng/mL Negative 0.029 - 0.29 ng/mL Indeterminate Greater or Equal to 0.3 ng/mL Strongly suggests [place] Chemistry - BNP, HgbA1c, PPZs1947-35-90 12:39:00* Test Item Value Reference Range Comments Chemistry - BNP, HgbA1c, PTHi (test code=ZKQF4FB) 5.9 % 4.0-6.0 Therapeutic goals for glycemic control (ADA)Adults:- Goal of therapy: Less than 7.0% HbA1c- Action suggested: Greater than 8.0% AmM6kQfuaagbop patients:- Toddlers and preschoolers: Less than 8.5% (but Greater than 7.5%)- School age (6-12 years): Less than 8%- Adolescents and young adults (13-19 years): Less than 7.5%Diagnosing diabetes (ADA)- HbA1c: Greater than or equal to 6.5% Values of 5.7 - 6.4% indicate HIGH risk for developing DiabetesInternational Expert Committee Report on the Role of the I2OFwqkw in the Diagnosis of Diabetes. Diabetes Care 2009July;32(7):1327-1334ADA, Diagnosis classification of diabetes mellitus.Diabetes Care 2010; 33 Suppl 1:S62 Bshpeherd9870-06-17 12:31:00* Test Item Value Reference Range Comments Chemistry (test code=CKMBM-T) 3.1 ng/mL 0-6.6 Chemistry (test code=TROPI-T) 0.123 ng/mL < 0.028 Reference Range 0.00 - 0.028 ng/mL Negative 0.029 - 0.29 ng/mL Indeterminate Greater or Equal to 0.3 ng/mL Strongly suggests [place] Tzgoqgjip3676-12-68 12:26:00* Test Item Value Reference Range Comments Chemistry (test code=NA-T) 139 mmol/L 136-145 Chemistry (test code=K-T) 3.9 mmol/L 3.5-5.1 Chemistry (test code=CL) 107 mmol/L 98-107 Chemistry (test code=CO2) 21 mmol/L 22-29 Chemistry (test code=ANGP) 15 mmol/L 10-20 Chemistry (test code=BUN) 26 mg/dL 8.4-25.7 Chemistry (test code=CREATT) 1.67 mg/dL 0.6-1.3 Chemistry (test code=EGFRMDRD) 43 Reference Range for Estimated GFR: Greater than 90 mL/min/1.73 m2NOTE:The MDRD equation has not been validated for use with theelderly (over 70 years of age), women, patien tswith serious comorbid condition or persons with extremes ofbody size, muscle mass, or nutritional status. Chemistry (test code=GLU-T) 177 mg/dL 70-105 Chemistry (test code=CA) 8.2 mg/dL 7.8-10.44 Jbbqsswq1334-53-46 12:20:00* Test Item Value Reference Range Comments Accuchek (test code=ACU) 258 mg/dL 70-110 Swxahriwe6310-67-36 11:14:00* Test Item Value Reference Range Comments Chemistry (test code=BOHB) 0.28 mmol/L 0.02-0.27 Chemistry - BNP, HgbA1c, GADg8044-61-65 11:09:00* Test Item Value Reference Range Comments Chemistry - BNP, HgbA1c, PTHi (test code=IVUX8OY) 5.9 % 4.0-6.0 Therapeutic goals for glycemic control (ADA)Adults:- Goal of therapy: Less than 7.0% HbA1c- Action suggested: Greater than 8.0% JaH2hGplqpjadu patients:- Toddlers and preschoolers: Less than 8.5% (but Greater than 7.5%)- School age (6-12 years): Less than 8%- Adolescents and young adults (13-19 years): Less than 7.5%Diagnosing diabetes (ADA)- HbA1c: Greater than or equal to 6.5% Values of 5.7 - 6.4% indicate HIGH risk for developing DiabetesInternational Expert Committee Report on the Role of the A8QVjdmf in the Diagnosis of Diabetes. Diabetes Care 2009July;32(7):1327-1334ADA, Diagnosis classification of diabetes mellitus.Diabetes Care 2010; 33 Suppl 1:S62 Chemistry - Lkfnahbo9237-30-71 09:52:00* Test Item Value Reference Range Comments Chemistry - Specials (test code=TSH3) 0.7519 uIU/mL 0.35-4.94 TnqwfwsMkbywsppl5193-16-60 09:51:00* Test Item Value Reference Range Comments Chemistry (test code=CORTS) 15.40 ug/dL See Ranges REFERENCE RANGES: CORTISOL, serum Before 10 am 3.7 - 19.4 ug/dL After 5pm 2.9 - 17.3 ug/dL Comment do lab bloodIs this an ACTH or Cortrosyn STIMULATION Test? NOChemistry 2017-07-26 09:37:00* Test Item Value Reference Range Comments Chemistry (test code=TROPI-T) 0.094 ng/mL < 0.028 Reference Range 0.00 - 0.028 ng/mL Negative 0.029 - 0.29 ng/mL Indeterminate Greater or Equal to 0.3 ng/mL Strongly suggests [place] Chemistry - BNP, HgbA1c, LADv5530-37-98 08:27:00* Test Item Value Reference Range Comments Chemistry - BNP, HgbA1c, PTHi (test code=BNP) 107.0 pg/mL 0-100 Comment blood in jqbCkuradddz8780-33-70 07:18:00* Test Item Value Reference Range Comments Chemistry (test code=TROPI-T) 0.065 ng/mL < 0.028 Reference Range 0.00 - 0.028 ng/mL Negative 0.029 - 0.29 ng/mL Indeterminate Greater or Equal to 0.3 ng/mL Strongly suggests [place] Gxpwexxf3024-06-54 06:58:00* Test Item Value Reference Range Comments Accuchek (test code=ACU) 203 mg/dL 70-110 Lvznpspn4502-80-51 05:38:00* Test Item Value Reference Range Comments Accuchek (test code=ACU) 253 mg/dL 70-110 Point of Care Cfawwch5529-10-60 05:34:00* Test Item Value Reference Range Comments Point of Care Testing (test code=POCpHv) 7.393 7.35-7.45 Point of Care Testing (test code=WDCgWD8f) 39.1 mmHg 41.0-51.0 Point of Care Testing (test code=DYHmV2e) 139.6 mmHg 35.0-45.0 Point of Care Testing (test code=KCSZBM3p) 23.9 mmol/L 1.0-85.0 Point of Care Testing (test code=POCBEv) -0.9 mmol/L 0 (+/- 2.5) Point of Care Testing (test code=POCO2v) 99.1 % 94-98 Point of Care Testing (test code=POCHCTVBG) 32.0 % 36-52 Point of Care Testing (test code=POCHGBVBG) 10.8 g/dL 12.0-18.0 Point of Care Testing (test code=POCNAVBG) 140.0 mmol/L 138-145 Point of Care Testing (test code=POCKVBG) 3.3 mmol/L 3.4-4.7 Point of Care Testing (test code=POCCLVBG) 104.0 mmol/L 98-113 Point of Care Testing (test code=QAGIQC4l) 25.1 mmol/L 1.0-85.0 Point of Care Testing (test code=POCCAVBG) 0.97 mmol/L 1.12-1.32 Point of Care Testing (test code=POCANGP) 12 mmol/L 10-20 Zpnfslpiw6575-49-63 04:01:00* Test Item Value Reference Range Comments Chemistry (test code=BOHB) 0.88 mmol/L 0.02-0.27 Chemistry - Laofbnk0464-17-68 04:00:00* Test Item Value Reference Range Comments Chemistry - Lactate (test code=LACTSEP-T) 1.0 mmol/L 0.5-2.2 Ubhzghevs5013-81-19 03:59:00* Test Item Value Reference Range Comments Chemistry (test code=NA-T) 134 mmol/L 136-145 Chemistry (test code=K-T) 3.5 mmol/L 3.5-5.1 Chemistry (test code=CL) 101 mmol/L 98-107 Chemistry (test code=CO2) 22 mmol/L 22-29 Chemistry (test code=ANGP) 15 mmol/L 10-20 Chemistry (test code=BUN) 32 mg/dL 8.4-25.7 Chemistry (test code=CREATT) 2.14 mg/dL 0.6-1.3 Chemistry (test code=EGFRMDRD) 32 Reference Range for Estimated GFR: Greater than 90 mL/min/1.73 m2NOTE:The MDRD equation has not been validated for use with theelderly (over 70 years of age), women, patien tswith serious comorbid condition or persons with extremes ofbody size, muscle mass, or nutritional status. Chemistry (test code=GLU-T) 312 mg/dL 70-105 Chemistry (test code=CA) 8.1 mg/dL 7.8-10.44 Sepsis - Lactic Acid >2 Yjnj5864-17-43 03:40:00* Test Item Value Reference Range Comments Sepsis - Lactic Acid >2 Rflx (test code=WEUEC2I) Additional Lactate testing will be performed in 3 hrs according to the SepsisProtocol. Djtpqucf4001-00-62 03:25:00* Test Item Value Reference Range Comments Accuchek (test code=ACU) 305 mg/dL 70-110 Vsevfunzhv9340-46-95 01:14:00* Test Item Value Reference Range Comments Hematology (test code=SED) 93 mm/hr 0-10 Kcyghzlvngl8173-46-64 01:10:00* Test Item Value Reference Range Comments Coagulation (test code=PT-T) 16.1 SEC 12.0-14.7 Coagulation (test code=INR) 1.3 ATTENTION: READ CAREFULLY The recommended therapeutic ranges for oral anticoagulanttreatments are: Low Intensity: 1.5 - 2.0 Moderate Intensity: 2.0 - 3.0 High Intensity (1): 2.5 - 3.5 High Intensity (2): 3.0 - 4.0 CRITICAL: > 4.0 Anticoagulant? NONEMedical Necessity SUSPECT COAGULOPATHYAnticoagulant? NONEMedi jack Necessity: SUSP NJDAIfnxsdzyvje0366-45-27 01:10:00* Test Item Value Reference Range Comments Coagulation (test code=PTT) 37.7 SEC 22.9-36.1 Anticoagulant? NONEMedical Necessity SUSPECT COAGULOPATHYAnticoagulant? NONEMedi jack Necessity: SUSP KRDBWamydvmxdle0820-28-04 01:10:00* Test Item Value Reference Range Comments Coagulation (test code=DDIMTT) 2.64 *mcg/mL 0.27-0.43 * Reference Range Units: mcg/mL of fibrinogen equivalent units(FEU)Based upon a retrospective study of [facility] patients in August 2005, a result of"Less than 0.44 mcg/mL FEU" is predictive of the absence ofa DVT or PE. Anticoagulant? NONEMedical Necessity SUSPECT COAGULOPATHYAnticoagulant? NONEMedi jack Necessity: SUSP ECXPFlhzduzreo0909-82-61 01:02:00* Test Item Value Reference Range Comments Hematology (test code=WBCT) 10.6 thou/uL 4.8-10.8 Hematology (test code=RBCT) 4.23 mill/uL 4.70-6.10 Hematology (test code=HGBT) 10.1 g/dL 14.0-18.0 Hematology (test code=HCTT) 31.0 % 42.0-52.0 Hematology (test code=MCV) 73.3 fl 80.0-94.0 Hematology (test code=MCH) 23.8 pg 27.0-31.0 Hematology (test code=MCHC) 32.5 g/dL 32.0-36.0 Hematology (test code=RDW) 17.9 % 11.5-14.5 Hematology (test code=PLTT) 217 thou/uL 130-400 Hematology (test code=MPV) 8.1 fL 7.4-10.4 Hematology (test code=NE) 76 % 42-75 Hematology (test code=LY) 18 % 21-51 Hematology (test code=MO) 6 % 0-10 Hematology (test code=AN) SLIGHT=6-15 cells (100X) 0-5/hpf Hematology (test code=PO) SLIGHT=6-15 cells (100X) 0-5/hpf Hematology (test code=FL) SLIGHT=6-15 cells (100X) 0-5/hpf Hematology (test code=PCOMMENT) Appears Adequate Hematology (test code=MC) Abnormal Xsuvimey2322-18-10 00:46:00* Test Item Value Reference Range Comments Accuchek (test code=ACU) 410 mg/dL 70-110 REPORT RESULTNOTIFIED PHYSICIAN Qqvgeprzd4338-54-13 00:45:00* Test Item Value Reference Range Comments Chemistry (test code=ACET-T) Less than 6.0 mcg/mL 10.0-30.0 Therapeutic Range: 10.0 - 30.0 ug/mLToxic Range: Possible toxicity: 150 - 200 ug/mL Probable toxicity: Greater than 200 ug/mL*IMPORTANT TESTING INFORMATION* The half-life of NAC is 2 hours. The total NAC clearanceis 5.6 hours for adults and 11 hours for Newborns. Testing acetaminophen levels prior to a reasonable timeframe for clearance can cause falsely decreasedacetaminophen levels. Chemistry (test code=ETOH) Less than 10 mg/dL Less than 10 The pharmacological response to blood alcohol levels mayvary from individual to individual. Negative: Less than 10 mg/dL Toxic: 50 - 100 mg/dL Depression of BILINGUAL ACCOUNT MANAGER: Greater than 100 mg/dL Fatalities reported: Greater than 400 mg/dL Chemistry (test code=SALCY) Less than 8.0 mg/dL 15.0-30.0 [id number] 00:45:00* Test Item Value Reference Range Comments Chemistry (test code=CKMBM-T) 1.5 ng/mL 0-6.6 Chemistry (test code=TROPI-T) 0.017 ng/mL < 0.028 Reference Range 0.00 - 0.028 ng/mL Negative 0.029 - 0.29 ng/mL Indeterminate Greater or Equal to 0.3 ng/mL Strongly suggests [place] [id number] 00:44:00* Test Item Value Reference Range Comments Chemistry (test code=NA-T) 133 mmol/L 136-145 Chemistry (test code=K-T) 3.8 mmol/L 3.5-5.1 Chemistry (test code=CL) 97 mmol/L 98-107 Chemistry (test code=CO2) 19 mmol/L 22-29 Chemistry (test code=ANGP) 21 mmol/L 10-20 Chemistry (test code=BUN) 37 mg/dL 8.4-25.7 Chemistry (test code=CREATT) 2.47 mg/dL 0.7-1.3 Chemistry (test code=EGFRMDRD) 27 Reference Range for Estimated GFR: Greater than 90 mL/min/1.73 m2NOTE:The MDRD equation has not been validated for use with theelderly (over 70 years of age), women, patien tswith serious comorbid condition or persons with extremes ofbody size, muscle mass, or nutritional status. Chemistry (test code=GLU-T) 426 mg/dL 70-105 Chemistry (test code=CA) 7.6 mg/dL 7.8-10.44 Chemistry (test code=TBILI) 0.9 mg/dL 0.2-1.2 Chemistry (test code=TP) 5.1 g/dL 6.0-8.3 Chemistry (test code=ALB) 3.3 g/dL 3.5-5.0 Chemistry (test code=GLOB) 1.8 g/dL 2.4-3.5 Chemistry (test code=AG) 1.8 g/dL 1.2-2.2 Chemistry (test code=ALP) 66 U/L 40-150 Chemistry (test code=AST) 15 U/L 5-34 Chemistry (test code=ALT) 12 U/L 8-55 [id number] 00:44:00* Test Item Value Reference Range Comments Chemistry (test code=CK) 664 U/L 30-200 Chemistry - [id number] 00:40:00* Test Item Value Reference Range Comments Chemistry - Lactate (test code=LACTSEP-T) 2.8 mmol/L 0.5-2.2 ANAEROBIC [id number] 23:46:00* Test Item Value Reference Range Comments CULTURE (BEAKER) (test [id number]) No anaerobes isolated TISSUE [id number] 18:59:00Surgical Pathology Report Case: [id number] Authorizing Provider: Deisy Warren MD Collected: 06/30/2017 0738 [facility] Received: 06/30/2017 1302 SERVICES Pathologist: Arnaldo Bender MD Specimens: A) - Synovium, Left Ankle Biopsy B) - Bone, Biopsy/Curettings, Left Ankle Tib/Talus C) - Bursa, Left, Biopsy D) - Bone, Biopsy/Curettings, Left Medial Foot A. SYNOVIUM, LEFT ANKLE, BIOPSY:- SYNOVIAL TISSUE WITH GRANULATION TISSUE, BLOOD CLOT, AND SCANT FRAGMENTS OF BONEB. BONE, LEFT ANKLE TIBIA & TALUS, BIOPSY & CURETTAGE:- FRAGMENTS OF VIABLE BONE WITH SCANT MARROW- NEGATIVE FOR OSTEOMYELITISC. BURSA, LEFT ANKLE, BIOPSY:- BURSAL TISSUE WITH CHRONIC ACTIVE INFLAMMATION, GRANULATION TISSUE, FIBRIN, FIBROSIS, AND SCANT FRAGMENTS OF BONE- FOCAL FOREIGN BODY GIANT CELL REACTION CONSISTENT WITH PREVIOUS PROCEDURED. BONE, LEFT MEDIAL FOOT, BIOPSY:- FRAGMENTS OF BONE, WITH FOCAL BONE NECROSIS, MARROW FIBROSIS, REMODELING, AND CHRONIC INFLAMMATION, CONSISTENT WITH CHRONIC OSTEOMYELITIS Signing Pathologist Direct Phone Line: [phone] signed by Arnaldo Bender MD on 07/05/2017 at 6:59 [id number], [id number], [id number] neuropathic arthropathy. Diabetes mellitus with skin ulcer. Abscess of bursa of left foot. Chronic osteomyelitis of left foot.The paperwork, containers, and cassettes are all labeled [id number].The specimen is received in formalin in 4 containers labeled with the patient's name (JEREMY) and medical record number.A. The specimen labeled "synovium, left ankle" consists of a 2.5 x 1.5 x 0.8 cm aggregate of multiple fragments of jurado-white and hemorrhagic tissue, ranging from 0.5 to 1.9 cm in greatest dimension. The specimen is entirely submitted in a single jennifer sette labeled A1.B. The specimen labeled "bone biopsy, left ankle (tib/talus)" c onsists of a 0.7 x 0.5 x 0.2 cm aggregate of multiple fragments of jurado-white tis rafal, ranging from 0.1-0.2 cm in greatest dimension. The specimen is entirely soriano bmitted after filtration in a single cassette labeled B1.C. The specimen labeled "bursa left foot" consists of a 0.7 X 0.6 X 0.2 cm aggregate of multiple fragme nts of jurado-white and hemorrhagic tissue, ranging from 0.7-2 cm in greatest dimen justin. [employer] sections of the specimen are submitted in a single cassett e labeled C1.D. The specimen labeled "bone medial foot" consists of a 2.3 x 2.3 x 1.4 cm aggregate of multiple fragments of jurado-white and hemorrhagic bony and f ibrous tissue, ranging from 0.3-1.8 cm in greatest dimension. [employer] se ctions (approximately 80% of tissue submitted) are submitted in a single cassett e labeled D1, after decalcification.Microscopic examination is performed and is incorporated in the diagnostic line.[facility] nt of Pathology, [place] [address], Tel [facility], Department of Pathology, [address] [place] [id number], [facility], [place] [address], Tel ANAEROBI [id number] 02:59:00* Test Item Value Reference Range Comments CULTURE (BEAKER) (test xnyb=5058) No anaerobes isolated ANAEROBIC [id number] 02:59:00* Test Item Value Reference Range Comments CULTURE (BEAKER) (test gflm=7930) No anaerobes isolated SURGICALLY OBTAINED CULTURE + GRAM [id number] 14:34:00* Test Item Value Reference Range Comments CULTURE (BEAKER) (test qdbt=1924) Clindamycin (test code=10) Erythromycin (test code=4) Levofloxacin (test code=22) Linezolid (test code=40) Nitrofurantoin (test code=23) Oxacillin (test code=14) Rifampin (test code=43) Tetracycline (test code=2) Trimethoprim + Sulfamethoxazole (test code=47) Vancomycin (test code=13) CULTURE (BEAKER) (test lzww=2252) Coagulase negative Staphylococcus GRAM STAIN RESULT (BEAKER) (test qsbk=7669) <1+ WBCs GRAM STAIN RESULT (BEAKER) (test dajz=413537) No organisms seen SURGICALLY OBTAINED CULTURE + GRAM [id number] 12:55:00* Test Item Value Reference Range Comments CULTURE (BEAKER) (test ztja=4593) No growth GRAM STAIN RESULT (BEAKER) (test dvol=5748) <1+ White blood cells seen GRAM STAIN RESULT (BEAKER) (test xter=98778) No organisms seen SURGICALLY OBTAINED CULTURE + GRAM [id number] 12:55:00* Test Item Value Reference Range Comments CULTURE (BEAKER) (test wokt=4063) No growth GRAM STAIN RESULT (BEAKER) (test hfch=1654) <1+ WBCs GRAM STAIN RESULT (BEAKER) (test fmzb=37230) No organisms seen SPIN/CONCENTRATION [id number] 03:55:00* Test Item Value Reference Range Comments CONCENTRATION CHARGED (BEAKER) (test uaey=0286) Done SPIN/CONCENTRATION [id number] 03:54:00* Test Item Value Reference Range Comments CONCENTRATION CHARGED (BEAKER) (test zfsp=7213) Done [id number] 06:32:00* Test Item Value Reference Range Comments SODIUM (BEAKER) (test hugr=985) 142 meq/L 135-148 POTASSIUM (BEAKER) (test pzgz=124) 3.8 meq/L 3.6-5.5 CHLORIDE (BEAKER) (test oxhr=401) 101 meq/L 98-106 CO2 (BEAKER) (test gfcd=317) 25 meq/L 20-29 BUN AND [id number] 06:32:00* Test Item Value Reference Range Comments BLOOD UREA NITROGEN (BEAKER) (test doaj=787) 27 mg/dL 10-26 CREATININE (BEAKER) (test awti=525) 1.36 mg/dL 0.50-1.20 EGFR (BEAKER) (test vbfr=8504) 54 mL/min/1.73 sq m ESTIMATED GFR IS NOT ACCURATE CREATININE CLEARANCE IN PREDICTING GLOMERULAR FILTRATION RATE. ESTIMATED GFR IS NOT APPLICABLE FOR DIALYSIS PATIENTS. [id number] 06:12:00* Test Item Value Reference Range Comments HEMOGLOBIN (BEAKER) (test shqd=657) 12.5 GM/DL 13.0-16.8 POCT-GLUCOSE [id number] 06:10:00* Test Item Value Reference Range Comments POC-GLUCOSE METER (BEAKER) (test otzg=5238) 99 mg/dL 70-110 TESTED AT [facility] [address] [place] [address]
[~2018-03-04] VITALS: Ht 190.5 cm; Wt 102.1 kg
[~2018-03-04] MED LIST changes: +FENTANYL CITRATE/PF 100MCG/2 ML INJ ONE; +LIDOCAINE HCL 2% LOCAL 20 ML VIAL ONE; +MIDAZOLAM HCL 2 MG/2 ML VIAL ONE; +SODIUM CHLORIDE 0.9% 500ML 1,000 ML ONE
--- OUTSIDE RECORDS SUMMARY | 2018-03-04 08:33 | XMS REPORT | Clinical Summary ---
Author Author [facility] Address Unknown Phone Unavailable Care Team Providers Care Director Of Real Estate Name Role Phone Travon Gibbs MD PCP Allergies Active Allergy Reactions Severity Noted Date Comments Vancomycin Other (See Comments) High 09/07/2016 Piperacillin-Tazobactam Other (See Comments) High 09/07/2016 Current Medications Prescription Sig. Disp. Refills Start End Date Status Date atorvastatin (LIPITOR) 40 04/08/20 Active MG tablet 16 buPROPion SR (WELLBUTRIN 04/16/20 Active SR) 150 MG 12 hr tablet 16 FLUARIX QUAD 0682-1427, 02/05/20 Active PF, syringe vaccine 16 LEVEMIR [...] Date Type Specialty Care Team Description 02/02/2018 [facility] Radiology Deisy Warren MD Closed nondisplaced Encounter transverse fracture of shaft of left tibia with routine healing 01/25/2018 Transcribe Access Deisy Warren MD Closed nondisplaced Orders transverse fracture of shaft of left tibia with routine healing (Primary Dx) 06/18/2017 Office Visit Wound Care Dale Lucio DPMilton Ulcer of left foot, with fat layer exposed (Primary Dx) 06/16/2017 [facility] Radiology Dale Lucio DPMilton Ulcer of left heel, with Encounter fat layer exposed 06/16/2017 [facility] Radiology Dale Lucio DPM Ulcer of left heel, with Encounter fat layer exposed 05/17/2017 Procedure Pass Radiology 05/17/2017 Procedure Pass Radiology 05/17/2017 Transcribe Access Dale Lcuio DPMilton Ulcer of left heel, with Orders fat layer exposed (Primary Dx) 03/04/2017 Anesthesia General Surgery Erik Montoya MD Event 03/04/2017 Procedure Pass General Surgery 03/04/2017 Surgery General Surgery Niraj Hall MD angiogram , Left Lower Extremity, aortagram, balloon angioplasty of SFA left leg 03/01/2017 [facility] General Internal Medicine Marie Gutierrez, Acute osteomyelitis of - Encounter DO left foot (Primary Dx) 03/08/2017 Hunter Melendez MD after 03/03/2017 Immunizations Name Dates Previously Given Next Due [...] Taken Blood Pressure 163/84 03/08/2017 9:25 AM COPRA PROCESSOR Pulse 86 03/08/2017 9:25 AM COPRA PROCESSOR Temperature 36.2 C (97.2 F) 03/08/2017 9:25 AM COPRA PROCESSOR Respiratory Rate 18 03/08/2017 9:25 AM COPRA PROCESSOR Oxygen Saturation 99% 03/08/2017 9:25 AM COPRA PROCESSOR Inhaled Oxygen - - Concentration Weight 98.3 kg (216 lb 12.8 oz) 03/08/2017 5:00 AM COPRA PROCESSOR Height - - Body Mass Index 27.1 03/08/2017 5:00 AM COPRA PROCESSOR Plan of Treatment Health Maintenance Due Date Last Done Comments SHINGRIX VACCINE (#1) 2012 INFLUENZA VACCINE 11/24/2017 03/05/2017, 03/05/2017, 02/24/2014 COLON CANCER SCREENING 08/04/2026 08/04/2016 Implants Implanted Type Area Dragline Oiler Device Expiration Model / Identifier Date Serial / Lot Device Vasclr Clsr Baln Cath 10ml Cardiovasc Right: CARDINAL 12/24/2018 [id number] / Lkng Syr 6fr 7fr Mynxgrip [facility] / [id number] Implants [id number] Implanted: Qty: 1 on 03/04/2017 by Niraj Hall MD Dressing Wnd 4x5in Mtrx 2lyr - Human Right: INTEGRA 12/24/2017 [id number] / [id number] Tissue Foot L[employer]CIENCE / Implanted: Qty: 1 on 09/16/2016 by Implants RECON [id number] Dale Lucio DPM 23 Graft Soft-Tissue Epifix 2x3cm - Human Left: Foot [employer] 07/25/2020 [id number] / [id number] - [id number] Tissue INC [id number] Implanted: Qty: 1 on 09/16/2016 by Implants [id number] / Dale Lucio, LACEY [id number] Allograft Epifix Micronized 160mg - Human Right: [employer] 03/26/2021 [id number] / [id number] - [id number] Tissue Foot INC [id number] Implanted: Qty: 1 on 11/06/2016 by Implants [id number] / TirsoteUri jiangr Jamiefid, DPM [id number] Explanted Type Area Dragline Oiler Device Expiration Model / Identifier Date Serial / Lot Catheter Angio Paralegal Legal Secretary Ii 5fr Surgical Left: [facility] PERIPHERAL [id number] 0.038in 65cm Hf Contra-L - Implants; Groin INTERVENTION / [id number] Expanders; VASCULAR MARIA DEL CARMEN / Implanted: [...] Routine 06/18/2017 Results for this 4:35 PM COPRA PROCESSOR procedure are in the results section. ANAEROBIC CULTURE Routine 06/18/2017 Results for this 4:35 PM COPRA PROCESSOR procedure are in the results section. AEROBIC CULTURE Routine 06/18/2017 Results for this 4:35 PM COPRA PROCESSOR procedure are in the results section. MRI LOWER EXTREMITY JOINT Routine 06/16/2017 Ulcer of left heel, with Results for this WO CONTRAST LEFT 9:26 AM COPRA PROCESSOR fat layer exposed procedure are in the results section. MRI FOOT WO CONTRAST LEFT Routine 06/16/2017 Ulcer of left heel, with Results for this 9:25 AM COPRA PROCESSOR fat layer exposed procedure are in the results section. XR CHEST 1 VW PORTABLE STAT 03/08/2017 Results for this 8:49 AM COPRA PROCESSOR procedure are in the results section. POC GLUCOSE Routine 03/08/2017 Results for this 6:47 AM COPRA PROCESSOR procedure are in the results section. POC GLUCOSE Routine 03/07/2017 Results for this 9:08 PM COPRA PROCESSOR procedure are in the results section. POC GLUCOSE Routine 03/07/2017 Results for this 4:14 PM COPRA PROCESSOR procedure are in the results section. POC GLUCOSE Routine 03/07/2017 Results for this 12:45 PM COPRA PROCESSOR procedure are in the results section. POC GLUCOSE Routine 03/07/2017 Results for this 6:34 AM COPRA PROCESSOR procedure are in the results section. POC GLUCOSE Routine 03/06/2017 Results for this 9:10 PM COPRA PROCESSOR procedure are in the results section. POC GLUCOSE Routine 03/06/2017 Results for this 4:02 PM COPRA PROCESSOR procedure are in the results section. POC GLUCOSE Routine 03/06/2017 Results for this 11:13 AM COPRA PROCESSOR procedure are in the results section. POC GLUCOSE Routine 03/06/2017 Results for this 7:27 AM COPRA PROCESSOR procedure are in the results section. POC GLUCOSE Routine 03/05/2017 Results for this 8:12 PM COPRA PROCESSOR procedure are in the results section. POC GLUCOSE Routine 03/05/2017 Results for this 3:32 PM COPRA PROCESSOR procedure are in the results section. POC GLUCOSE Routine 03/05/2017 Results for this 11:39 AM COPRA PROCESSOR procedure are in the results section. POC GLUCOSE Routine 03/05/2017 Results for this 7:33 AM COPRA PROCESSOR procedure are in the results section. ZZESTIMATED GFR Routine 03/05/2017 Results for this 4:55 AM COPRA PROCESSOR procedure are in the results section. BASIC METABOLIC PANEL Routine 03/05/2017 Results for this 4:55 AM COPRA PROCESSOR procedure are in the results section. HC COMPLETE BLD COUNT Routine 03/05/2017 Results for this W/AUTO DIFF 4:55 AM COPRA PROCESSOR procedure are in the results section. POC GLUCOSE Routine 03/04/2017 Results for this 8:14 PM COPRA PROCESSOR procedure are in the results section. POC GLUCOSE Routine 03/04/2017 Results for this 6:34 PM COPRA PROCESSOR procedure are in the results section. POC GLUCOSE Routine 03/04/2017 Results for this 5:15 PM COPRA PROCESSOR procedure are in the results section. CV HYBRID OR FLUOROSCOPY Routine 03/04/2017 Results for this 3:35 PM COPRA PROCESSOR procedure are in the results section. XR CHEST 1 VW PORTABLE Routine 03/04/2017 Results for this 2:37 PM COPRA PROCESSOR procedure are in the results section. POC GLUCOSE Routine 03/04/2017 Results for this 11:20 AM COPRA PROCESSOR procedure are in the results section. HC CATH DUAL LUMEN PICC Routine 03/04/2017 Results for this 11:19 AM COPRA PROCESSOR procedure are in the results section. HC US GUIDED VASCULAR Routine 03/04/2017 Results for this ACCESS 11:19 AM COPRA PROCESSOR procedure are in the results section. HC CVL PICC INSERT 5 YRS Routine 03/04/2017 Results for this OR > 11:19 AM COPRA PROCESSOR procedure are in the results section. POC GLUCOSE Routine 03/04/2017 Results for this 7:21 AM COPRA PROCESSOR procedure are in the results section. ZZESTIMATED GFR Routine 03/04/2017 Results for this 6:22 AM COPRA PROCESSOR procedure are in the results section. TYPE AND SCREEN Routine 03/04/2017 Results for this 6:22 AM COPRA PROCESSOR procedure are in the results section. BASIC METABOLIC PANEL Routine 03/04/2017 Results for this 6:22 AM COPRA PROCESSOR procedure are in the results section. HC COMPLETE BLD COUNT Routine 03/04/2017 Results for this W/AUTO DIFF 6:22 AM COPRA PROCESSOR procedure are in the results section. PROTHROMBIN TIME WITH INR Routine 03/04/2017 Results for this 6:22 AM COPRA PROCESSOR procedure are in the results section. PARTIAL THROMBOPLASTIN Routine 03/04/2017 Results for this TIME (PTT) 6:22 AM COPRA PROCESSOR procedure are in the results section. ECG 12-LEAD Routine 03/04/2017 Results for this 4:34 AM COPRA PROCESSOR procedure are in the results section. POC GLUCOSE Routine 03/03/2017 Results for this 9:03 PM COPRA PROCESSOR procedure are in the results section. POC GLUCOSE Routine 03/03/2017 Results for this 4:12 PM COPRA PROCESSOR procedure are in the results section. POC GLUCOSE Routine 03/03/2017 Results for this 11:28 AM COPRA PROCESSOR procedure are in the results section. POC GLUCOSE Routine 03/03/2017 Results for this 7:25 AM COPRA PROCESSOR procedure are in the results section. ZZESTIMATED GFR Routine 03/03/2017 Results for this 6:37 AM COPRA PROCESSOR procedure are in the results section. BASIC METABOLIC PANEL Routine 03/03/2017 Results for this 6:37 AM COPRA PROCESSOR procedure are in the results section. HC COMPLETE BLD COUNT Routine 03/03/2017 Results for this W/AUTO DIFF 6:37 AM COPRA PROCESSOR procedure are in the results section. HEMOGLOBIN A1C Routine 03/03/2017 Results for this 6:37 AM COPRA PROCESSOR procedure are in the results section. after 03/03/2017 Results * CT Lower Extremity Wo Contrast [...] although osteomyelitis and infection cannot be excluded. [facility]-[id number] Procedure Note Interface, Radiology Results 02/02/2018 1:07 PM CDT EXAMINATION: CT LOWER [...] although osteomyelitis and infection cannot be excluded. [id number] Performing Organization Address [facility] Phone Number [facility] [address] [place] [address] * Aerobic culture (06/18/2017 4:35 PM) Aerobic culture isolate Mixed mariposa- more than 3 [facility] DEPARTMENT OF organisms isolated. PATHOLOGY AND Consider resubmitting specimen GENOMIC MEDICINE if clinically indicated. Comment: Specimen Information Specimen Source: Ulcer Specimen Site: Left Foot Specimen Ulcer Performing Organization Address [facility] Phone Number [facility] DEPARTMENT OF [address] [place] [address] PATHOLOGY AND GENOMIC MEDICINE * Gram stain (06/18/2017 4:35 PM) Gram stain isolate Many WBC's [facility] DEPARTMENT OF No organisms seen PATHOLOGY AND Comment: GENOMIC MEDICINE Specimen Information Specimen Source: Ulcer Specimen Site: Left Foot Specimen Ulcer Performing Organization Address [facility] Phone Number [facility] DEPARTMENT OF [address] [place] [address] PATHOLOGY AND GENOMIC MEDICINE * Anaerobic culture (06/18/2017 4:35 PM) Anaerobic culture isolate No anaerobic organisms [facility] DEPARTMENT OF isolated. PATHOLOGY AND Comment: GENOMIC MEDICINE Specimen Information Specimen Source: Ulcer Specimen Site: Left Foot Specimen Ulcer Performing Organization Address [facility] Phone Number [facility] DEPARTMENT OF [address] [place] [address] PATHOLOGY AND GENOMIC MEDICINE * MRI Lower Extremity Joint Wo Contrast Left (06/16/2017 9:26 AM) Narrative Performed At EXAMINATION:MRI LOWER EXTREMITY JOINT WO CONTRAST LEFT [facility] CLINICAL HISTORY:L97.422 Non-pressure chronic ulcer of [...] is infected or not cannot be ascertained. [id number] Procedure Note Hm Interface, Radiology Results Incoming - 06/18/2017 9:04 PM COPRA PROCESSOR EXAMINATION: MRI LOWER EXTREMITY JOINT WO CONTRAST [...] is infected or not cannot be ascertained. [id number] Performing Organization Address City/State/Zipcode Phone Number [facility] [address] [place] [address] * MRI Foot Wo Contrast Left (06/16/2017 9:25 AM) Narrative [facility]formed At [facility] Procedure: MRI FOOT WO CONTRAST LEFT REFERRING PHYSICIAN: DALE LUCIO HISTORY: L9. Non-pressure chronic ulcer of left heel and midfoot with fat layer exposed, L9 COMPARISON: None TECHNIQUE: Multiplanar and multisequence were [...] described in the body of the report. [id number] Procedure Note Interface, Radiology Results Incoming - 06/16/2017 9:49 AM [facility] Procedure: MRI FOOT WO CONTRAST [...] described in the body of the report. [id number] Performing Organization Address [facility]/Zipcode Phone Number [facility] [address] [place] [address] * XR Chest 1 Vw Portable (03/08/2017 [...] cava. 2. The lung zones are clear. [id number] Procedure Note Hm Interface, Radiology Results Incoming - 03/08/2017 8:54 AM COPRA PROCESSOR EXAMINATION: XR CHEST 1 VW PORTABLE CLINICAL [...] cava. 2. The lung zones are clear. [id number] Performing Organization Address [facility] Phone Number [facility] [address] [place] [address] * POC glucose (03/08/2017 6:47 AM) Only the most recent of 22 results within the time period is included. POC glucose 153 (H) 65 - 100 mg/dL [facility] DEPARTMENT OF Comment: PATHOLOGY AND Meter ID: [id number] GENOMIC MEDICINE Manager Completions: Susanna Sierra Performing Organization Address City/[facility]/Zipcode Phone Number [address] [place] [address] PATHOLOGY AND [email or web address] [facility] * Estimated GFR (03/05/2017 4:55 AM) Only the most recent of 3 results within the time period is included. GFR Non Af Amer 88 mL/min/1.73 m2 [facility] DEPARTMENT OF PATHOLOGY AND [email or web address] MEDICINE GFR Af Amer >90 mL/min/1.73 m2 [facility] DEPARTMENT OF Comment: PATHOLOGY AND Chronic kidney [...] specimen Performing Organization Address City/State/Zipcode Phone Number [address] [place] [address] PATHOLOGY [employer] [facility] * CBC with platelet and differential (03/05/2017 4:55 AM) Only the most recent of 3 results within the time period is included. WBC 8.1 4.2 - 11.0 k/uL [facility] DEPARTMENT OF PATHOLOGY AND [email or web address] MEDICINE RBC 3.80 (L) 4.04 - 5.86 m/uL [facility] DEPARTMENT OF PATHOLOGY AND [email or web address] MEDICINE HGB 10.2 (L) 13.0 - 17.3 g/dL [facility] DEPARTMENT PATHOLOGY AND [email or web address] MEDICINE HCT 30.4 (L) 34.0 - 45.0 % [facility] DEPARTMENT OF PATHOLOGY AND GENOMIC MEDICINE MCV 80.0 80.0 - 98.0 fL [facility] DEPARTMENT OF PATHOLOGY AND GENOMIC MEDICINE MCH 26.8 (L) 27.0 - 34.0 pg [facility] DEPARTMENT OF PATHOLOGY AND GENOMIC MEDICINE MCHC 33.6 31.5 - 36.5 g/dL [facility] DEPARTMENT OF PATHOLOGY AND GENOMIC MEDICINE RDW - SD 43.2 37.0 - 51.0 fL [facility] DEPARTMENT OF PATHOLOGY AND GENOMIC MEDICINE MPV 9.2 7.4 - 10.4 fL [facility] OF PATHOLOGY AND GENOMIC MEDICINE Platelet count 403 (H) 150 - 400 k/uL [facility] DEPARTMENT OF PATHOLOGY AND GENOMIC MEDICINE Nucleated RBC 0.00 /100 WBC [facility] DEPARTMENT OF PATHOLOGY AND GENOMIC MEDICINE Neutrophils 69.0 (H) 36.0 - 66.0 % [facility] DEPARTMENT OF PATHOLOGY AND GENOMIC MEDICINE Lymphocytes 19.1 (L) 24.0 - 44.0 % [facility] DEPARTMENT OF PATHOLOGY AND GENOMIC MEDICINE Monocytes 9.1 (H) 0.0 - 6.0 % [facility] DEPARTMENT OF PATHOLOGY AND GENOMIC MEDICINE Eosinophils 1.7 0.0 - 6.0 % [facility] DEPARTMENT OF PATHOLOGY AND GENOMIC MEDICINE Basophils 0.4 0.0 - 1.2 % [facility] DEPARTMENT OF PATHOLOGY AND GENOMIC MEDICINE Immature granulocytes 0.7 0.0 - 1.0 % [facility] DEPARTMENT PATHOLOGY AND [email or web address] MEDICINE Specimen Blood Performing Organization Address City/[facility]/Zipcode Phone Number [address] [place] [id number] PATHOLOGY AND [email or web address] [facility] * Basic metabolic panel (03/05/2017 4:55 AM) Only the most recent of 3 results within the time period is included. Sodium 137 135 - 150 mEq/L [facility] DEPARTMENT OF PATHOLOGY AND [email or web address] MEDICINE Potassium 3.4 (L) 3.5 - 5.0 mEq/L [facility] DEPARTMENT OF PATHOLOGY AND GENOMIC MEDICINE Chloride 101 100 - 109 mEq/L [facility] DEPARTMENT OF PATHOLOGY AND GENOMIC MEDICINE CO2 29 24 - 32 mmol/L [facility] DEPARTMENT OF PATHOLOGY AND GENOMIC MEDICINE Anion gap 7 7 - 15 mEq/L [facility] DEPARTMENT OF Comment: PATHOLOGY AND Starting from July [facility] , anion gap calculation no longer incorporates potassium. Please note the change. BUN 8 7 - 18 mg/dL [facility] DEPARTMENT OF PATHOLOGY AND GENOMIC MEDICINE Creatinine 0.9 0.8 - 1.5 mg/dL [facility] DEPARTMENT OF PATHOLOGY AND GENOMIC MEDICINE Glucose 112 (H) 65 - 100 mg/dL [facility] DEPARTMENT OF PATHOLOGY AND [email or web address] MEDICINE Calcium 8.2 (L) 8.6 - 10.7 mg/dL [facility] DEPARTMENT PATHOLOGY AND [email or web address] MEDICINE Specimen Plasma specimen Performing Organization Address City/[facility]/Zipcode Phone Number [address] [place] [address] PATHOLOGY AND [email or web address] MEDICINE * Hybrid or fluoroscopy (03/04/2017 3:35 [...] discussed:No treatment, delayed treatment and alternative treatment [place] protocol: Procedure explained and questions answered to [...] Site:35 Patient position:Flat Vessel Size (mm):4 Indication:Known alf IV therapy Location:Right basilic Site selection rationale:Dominant arm, hx of PICCs, last placed in left arm Device Type:Valved Catheter size:5 Fr PICC Characteristics: Catheter Brand:PowerPICC Catheter with Sherlock 3 CG Tip Positioning System External Catheter Length (cm):0 Internal Catheter Length (cm):44 Total Catheter Length (cm):44 Catheter Lot Number:[id number] Catheter Expiration Date:02/23/1918 Micro-Introducer Lot Number:[id number] Micro-Introducer Expiration Date:02/23/2017 Procedure Details: Landmarks identified: [...] AM) PTT 33.2 23.0 - 36.0 sec [facility] DEPARTMENT OF Comment: PATHOLOGY AND PTT therapeutic range for GENOMIC MEDICINE unfractionated heparin is 61.0-112.0 seconds which corresponds to Anti-Xa 0.3-0.7 U/ml. Note:Change in Panic Value The PTT Panic Value is changing from 110 sec. to 100 sec. due to new instrumentation and reagents. Correlation studies have been performed to validate this result. Specimen Blood Performing Organization Address City/State/Zipcode Phone Number [facility] DEPARTMENT OF [address] [place] [address] PATHOLOGY AND GENOMIC MEDICINE * Prothrombin time with INR (03/04/2017 6:22 AM) Prothrombin time 14.0 12.0 - 15.0 sec [facility] DEPARTMENT OF PATHOLOGY AND GENOMIC MEDICINE INR 1.07 0.92 - 1.12 [facility] DEPARTMENT OF Comment: PATHOLOGY AND For patients on anticoagulant GENOMIC MEDICINE therapy, reference ranges below: Indication: INR Value Treatment of Venous Thrombosis, 2.0-3.0 pulmonary emboli, or prophylaxis of a venous thrombosis, or systemic emboli. High dose, high risk patients 3.0-4.5 with mechanical valves. NOTE:INR values over 3.0 are sometimes associated with gastrointestinal hemorrhage, especially values over 4.0. Specimen Blood Performing Organization Address City/[facility] Phone Number [facility] DEPARTMENT OF [address] [place] [address] PATHOLOGY AND GENOMIC MEDICINE * Type and screen (03/04/2017 6:22 AM) ABO grouping A [facility] DEPARTMENT OF PATHOLOGY AND GENOMIC MEDICINE Rh type POS [facility] DEPARTMENT OF PATHOLOGY AND GENOMIC MEDICINE Antibody screen (gel) NEG [facility] DEPARTMENT OF PATHOLOGY AND GENOMIC MEDICINE Specimen Blood Performing Organization Address [facility] Phone Number [facility] [address] [place] [address] PATHOLOGY AND GENOMIC MEDICINE * ECG 12 lead (03/04/2017 4:34 AM) Ventricular rate 72 [facility] Atrial rate 72 [facility] ME interval 152 [facility] QRSD interval 88 [...] evident in Inferior leads- Performing Organization Address [facility] Phone Number [facility] MUSE [address] [place] [address] * Hemoglobin A1c (03/03/2017 6:37 AM) Hemoglobin A1C 5.9 4.0 - 6.0 % [facility] DEPARTMENT OF Comment: PATHOLOGY AND GENOMIC MEDICINE Less than 6% - Goal of therapy for Type II Diabetes Less than 7%-Goal of therapy for Type I Diabetes Less than 8%-Accepta ble control for Type I or Type II Diabetes Greater than 8%-Unacceptabl e control; action indicated. ([id number]) Specimen Blood Performing Organization Address City/State/Zipcode Phone Number [facility] DEPARTMENT OF [address] [place] [address] PATHOLOGY AND GENOMIC MEDICINE after 03/03/2017 Insurance Payer Benefit Subscriber ID Type Phone Address Plan / Group AETNA AETNA xxxxxxxxxx HMO HMO,POS,EP O, [place] [address]
--- OUTSIDE RECORDS SUMMARY | 2018-03-04 08:33 | XMS REPORT | Clinical Summary ---
Author [facility] Address Unknown Phone Unavailable Care Team Providers Care Nuclear Equipment Research Engineer Name Role Phone Bernie Travonmichael Ovalle PCP [...] mouth 2 (two) capsule times daily. Active [id number] Take by mouth 0 iazid 10-320-25 mg [...] 06/30/2017 Orders Only General Internal Medicine after 03/03/2017 Social History Date Tobacco Use Types Packs/Day [...] Sandoval MD [phone] / / Schanz Screw [place] Fracture/F Left: Ankle MALA Implanted: Qty: 4 on 11/10/2017 by Deisy Sandoval MD [phone] / / Finley Wire Left: Ankle Synthes Implanted: Qty: 9 on 08/05/2017 by Deisy Warren MD [id number] / / Smooth Wire Left: Ankle Synthes Implanted: Qty: 1 on 08/05/2017 by Deisy Warren MD Device Identifier Shelf Expiration Date Model / Serial / Lot Explanted Type Area Manufactur er [id number] / / Smooth Wire Ankle Synthes Explanted: Qty: 1 on 08/05/2017 [id number] / / Finley Wire Left: Ankle Synthes Explanted: Qty: 1 on 08/05/2017 Procedures Comments Procedure Name Priority Date/Time Associated Diagnosis POCT-GLUCOSE METER Routine 11/10/2017 11:15 AM CDT POCT-GLUCOSE METER Routine 11/10/2017 10:33 AM CDT PROCEDURE W/ C-ARM 11/10/2017 Chronic osteomyelitis of 8:00 AM CDT ankle and foot, left (HCC) 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 ([facility]) Special Needs MINI C-ARM, SUPINE/HIN DFOOT POSITIONIN G AND SYNTHES RING FIXATER (NEW) SYNTHES (ROSSANA) CONFIRMED 11/09 OSTEOTOMY,FIBULA 11/10/2017 Chronic osteomyelitis of 8:00 AM CDT ankle and foot, left (HCC) 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 ([facility]) Special Needs MINI C-ARM, SUPINE/HIN DFOOT POSITIONIN G AND SYNTHES RING FIXATER (NEW) SYNTHES (ROSSANA) CONFIRMED 11/09 REVISION,EXTERNAL FIXATOR 11/10/2017 Chronic osteomyelitis of 8:00 AM CDT ankle and foot, left (HCC) 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 ([facility]) Special Needs MINI C-ARM, SUPINE/HIN DFOOT POSITIONIN G AND SYNTHES RING FIXATER (NEW) SYNTHES (ROSSANA) CONFIRMED 11/09 I&D,BONE FOOT 11/10/2017 Chronic osteomyelitis of 8:00 AM CDT ankle and foot, left (HCC) 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 ([facility]) Special Needs MINI C-ARM, SUPINE/HIN DFOOT POSITIONIN G AND SYNTHES RING FIXATER (NEW) SYNTHES (ROSSANA) CONFIRMED 11/09 ARTHRODESIS,FOOT 11/10/2017 Chronic osteomyelitis of 8:00 AM CDT ankle and foot, left (HCC) 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 ([facility]) Special Needs MINI C-ARM, SUPINE/HIN DFOOT POSITIONIN [...] METER Routine 08/05/2017 4:24 PM CDT FL MATERIAL STRESS TESTER IN OR 30 Routine 08/05/2017 MINUTE INCREMENTS [...] ms QTC Calculatio n(Bazett) 465 ms P [place] 40 degrees R [place] -24 degrees T [place] 2 degrees Normal sinus rhythm Prolonged QT [...] CULTURE + SMEAR Routine 06/30/2017 7:51 AM PROCESS COORDINATOR ANAEROBIC CULTURE Routine 06/30/2017 7:51 AM PROCESS COORDINATOR SURGICALLY OBTAINED Routine 06/30/2017 CULTURE + GRAM STAIN 7:51 AM PROCESS COORDINATOR SPIN/CONCENTRATION CHARGE Routine 06/30/2017 7:51 AM PROCESS COORDINATOR AFB CULTURE + SMEAR Routine 06/30/2017 7:48 AM PROCESS COORDINATOR ANAEROBIC CULTURE Routine 06/30/2017 7:48 AM PROCESS COORDINATOR SURGICALLY OBTAINED Routine 06/30/2017 CULTURE + GRAM STAIN 7:48 AM PROCESS COORDINATOR SPIN/CONCENTRATION CHARGE Routine 06/30/2017 7:48 AM PROCESS COORDINATOR AFB CULTURE + SMEAR Routine 06/30/2017 7:45 AM PROCESS COORDINATOR ANAEROBIC CULTURE Routine 06/30/2017 7:45 AM PROCESS COORDINATOR SURGICALLY OBTAINED Routine 06/30/2017 CULTURE + GRAM STAIN 7:45 AM PROCESS COORDINATOR TISSUE EXAM AP Routine 06/30/2017 7:38 AM PROCESS COORDINATOR ARTHROTOMY,ANKLE 06/30/2017 Diabetic neuropathic 7:00 AM PROCESS COORDINATOR arthropathy (HCC) Diabetes mellitus with skin ulcer (HCC) Abscess of bursa of left foot Chronic osteomyelitis of left foot (HCC) BIOPSY/EXCISION,SOFT 06/30/2017 Diabetic neuropathic TISSUE EXTREMITY LOWER 7:00 AM PROCESS COORDINATOR arthropathy (HCC) Diabetes mellitus with skin ulcer (HCC) Abscess of bursa of left foot Chronic osteomyelitis of left foot (HCC) I&D,BONE FOOT 06/30/2017 Diabetic neuropathic 7:00 AM PROCESS COORDINATOR arthropathy (HCC) Diabetes mellitus with skin ulcer (HCC) Abscess of bursa of left foot Chronic osteomyelitis of left foot (HCC) ECG 12-LEAD Routine 06/30/2017 6:11 AM PROCESS COORDINATOR Procedure Note - Interface, External Ris In - 06/30/2017 6:14 AM PROCESS COORDINATOR Ventricula r Rate 76 BPM Atrial Rate 76 BPM P-R Interval 160 ms QRS Duration 92 ms Q-T Interval 404 ms QTC Calculatio n(Bazett) 454 ms P [place] 44 degrees R [place] -40 degrees T [place] 17 degrees Normal sinus rhythm Left axis deviation Abnormal ECG No previous ECGs available ECG 12-LEAD Routine 06/30/2017 6:11 AM PROCESS COORDINATOR POCT-GLUCOSE METER Routine 06/30/2017 6:06 AM PROCESS COORDINATOR BUN AND CREATININE Routine 06/30/2017 6:05 AM PROCESS COORDINATOR ELECTROLYTE PANEL Routine 06/30/2017 6:05 AM PROCESS COORDINATOR HEMOGLOBIN Routine 06/30/2017 6:05 AM PROCESS COORDINATOR after 03/03/2017 Results * POC-Glucose meter (11/10/2017 11:15 AM CDT) Only the most recent of 42 results within the time period is included. POC-Glucose Meter 111 (H)Comment: TESTED AT [facility] 70 - 110 mg/dL [facility] [address] [facility] [id number] Specimen Blood Performing Organization Address City/[facility] Phone Number [address] [address] [facility] * RHYTHM STRIP - SCAN (08/10/2017 [...] Blood - Arm, Right Performing Organization Address City/[facility] Phone Number [facility] [address] [address] [facility] [address] [place], [place] [phone] * BUN and Creatinine (08/08/2017 4:52 AM [...] Blood - Arm, Left Performing Organization Address [facility] Number [facility] [place] [address] [facility] [place] [address] * C-Reactive Protein (08/05/2017 7:02 PM CDT) Only the most recent of 4 results within the time period is included. CRP 10.16 (H) 0.00 - 1.00 mg/dL [facility] Specimen Blood - Central Venous Line Performing Organization Address [facility] Number [facility] [address] [facility] [place] [address] * Sedimentation rate (08/05/2017 7:02 PM CDT) Only the most recent of 2 results within the time period is included. Sed Rate 113 (H) 0 - 20 mm/HR [facility] Specimen Blood - Central Venous Line Performing Organization Address [facility] Number [facility] [place] [address] [facility] [place] [address] * FL radio electronics officer in or 30 minute increments (08/05/2017 3:00 PM CDT) Narrative Performed At FLUOROSCOPIC UNIT UTILIZED. NO INTERPRETATION REQUESTED. [facility] Procedure Note Interface, External Ris In - 08/12/2017 7:05 AM CDT FLUOROSCOPIC UNIT UTILIZED. NO INTERPRETATION REQUESTED. Performing Organization Address [facility] Phone Number [facility] * AFB culture + smear (08/05/2017 1:37 PM CDT) Only the most recent of 4 results within the time period is included. Result No acid-fast bacilli isolated [facility] in 42 days [facility] AFB Smear No acid fast bacilli seen [facility] Specimen Tissue - Other Performing Organization Address City/[facility] Phone Number [address] [address] [phone] [place] [address] * Anaerobic culture (08/05/2017 1:37 PM CDT) Only the most recent of 4 results within the time period is included. Result No anaerobes isolated [facility] Specimen Tissue - Other Performing Organization Address [facility] Phone Number [address] [address] [phone] [place] [address] * Surgically obtained culture + gram stain (08/05/2017 1:37 PM CDT) Only the most recent of 4 results within the time period is included. Result No growth [facility] Gram Stain Result No WBCs [facility] Gram Stain Result No organisms seen [facility] Specimen Tissue - Other Performing Organization Address [facility] Phone Number [address] [address] [facility] * Fungus culture + smear (08/05/2017 1:37 PM CDT) Result No fungus isolated in 28 days [facility] Fungus Smear No fungi seen [facility] Specimen Tissue - Other Performing Organization Address City/[facility] Phone Number [address] [address] [phone] [place] [address] * SPIN/CONCENTRATION CHARGE (08/05/2017 1:37 PM CDT) Only the most recent of 3 results within the time period is included. Concentration charged Done [facility] Specimen Tissue - Other Performing Organization Address City/State/Zipcode Phone Number [address] [phone] * Tissue Exam (08/05/2017 1:37 PM CDT) Only the most recent of 2 results within the time period is included. Case Report Surgical Pathology [facility] Report Case: [id number] Authorizing Provider:Deisy Warren MDCollected: 08/05/2017 1337 Ordering Location: [address] MED/SURGRe ceived: 08/06/2017 1203 Pathologist: Arnaldo Bender MD Specimen:Bone, LEFT TALIS DIAGNOSIS A. BONE, LEFT TALUS, [facility] TALECTOMY: - BONE WITH CHRONIC OSTEOMYELITIS Signing Pathologist Direct Phone Line: [phone] CPT Code(s) 49495, [address] [facility] CLINICAL HISTORY Septic joint, osteomyelitis [facility] SPECIMEN SOURCE Bone [facility] GROSS DESCRIPTION Received fresh labeled "bone" [facility] are three irregular, campbell-white to yellow-jurado, ragged and jagged portions of bone measuring 8.0 x 6.5 x 3.0 cm in aggregate. The specimen is serially sectioned, and telephone claims representative sections are submitted in cassettes [id number] for decalcification. DB/ew MICROSCOPIC DESCRIPTION Microscopic examination is [facility] performed and is incorporated in the diagnostic line. Gross assessment was [facility] performed at [place], Department of Pathology, [address] [place] [id number], Technical component was [facility] performed at [facility] Department of Pathology, [address] [place] [id number], Professional component [facility] was performed at [facility] Department of Pathology, [place] [address], Specimen Tissue - Bone Performing Organization Address City/State/Zipcode Phone Number [facility] [address] [place] [address] [facility] [place] [address] * Basic Metabolic Panel (08/05/2017 10:42 AM [...] - Central Venous Line Performing Organization Address City/State/[facility] Phone Number [facility] [place] [address] [facility] [place] [address] * CBC (Hemogram only) (08/03/2017 5:21 AM [...] City/State/Zipcode Phone Number [facility] [place] [address] [facility] [place] [address] * NM bone scan 3 phase (08/01/2017 5:48 PM CDT) Narrative Performed At FINAL REPORT [facility] PROCEDURE: 3-PHASE BONE SCAN CPT CODE:06941 INDICATION:left ankle osteomyelitis PROTOCOL:25.1 mCi of Tc-99m [...] REPORT PROCEDURE: 3-PHASE BONE SCAN CPT CODE: 71301 INDICATION: left ankle osteomyelitis PROTOCOL: 25.1 mCi [...] Verified Date/Time: 08/01/2017 18:00:44 Performing Organization Address City/[employer] Phone Number [employer] * PERIPHERAL VASCULAR REPORT - SCAN (08/01/2017 5:20 PM CDT) Narrative Performed At * ECG 12 lead (08/01/2017 4:32 PM CDT) Only the most recent of 2 results within the time period is included. Narrative Performed At Ventricular Rate 79 BPM [employer] Atrial Rate 79 BPM P-R Interval 140 ms QRS Duration 88 ms Q-T Interval 406 ms QTC Calculation(Bazett) 465 ms P [place] 40 degrees R [place] -24 degrees T [place] 2 degrees Normal sinus rhythm Prolonged QT [...] 406 ms QTC Calculation(Bazett) 465 ms P [place] 40 degrees R [place] -24 degrees T [place] 2 degrees Normal sinus rhythm Prolonged QT Abnormal ECG When compared with ECG of 30-JUN-2017 06:11, No significant change was found Confirmed by Antwan Poon ([id number]) on 08/10/2017 5:13:17 PM Performing Organization Address City/[employer] Phone Number [employer] * Arterial doppler legs bilateral (08/01/2017 3:58 PM CDT) Narrative Performed At FINAL REPORT [employer] Bilateral lower extremity arterial ultrasound. COMPARISON STUDY: [...] MD Report Verified Date/Time:08/01/2017 16:45:03 Reading Location: [address] Body Reading Room Procedure Note [...] Report Verified Date/Time: 08/01/2017 16:45:03 Reading Location: [address] Body Reading Room Performing Organization Address City/State/Zipcode Phone Number [facility] * CBC with platelet count + automated [...] Organization Address City/State/Zipcode Phone Number [facility] [place] [address] [facility] [place] [address] * Manual Differential (07/31/2017 5:18 [...] [facility] Specimen Blood Performing Organization Address City/[facility] Phone Number [facility] [address] [place], [place] [phone] [facility] [address] [place], [place] [phone] * MRSA screen (07/30/2017 4:37 PM CDT) Result No MRSA isolated [facility] Specimen Nasal - Nares Performing Organization Address [facility] Phone Number [address] [address] [facility] * Wound culture + gram stain (07/30/2017 3:10 PM CDT) Result No growth [facility] Gram Stain Result 1+ WBCs [facility] Gram Stain Result No organisms seen [facility] Specimen Wound - Ankle, Left Performing Organization Address [facility] Phone Number [place] [phone] [place] [address] [facility] * Comprehensive metabolic panel (07/30/2017 4:03 [...] DIALYSIS PATIENTS. Specimen Blood Performing Organization Address [facility] Phone Number [facility] [address] [address] [facility] [address] [address] * Hemoglobin (06/30/2017 6:05 AM PROCESS COORDINATOR) Hemoglobin 12.5 (L) 13.0 - 16.8 GM/DL [facility] Specimen Blood Performing Organization Address City/[facility] Phone Number [facility] [place] [address] [facility] [address] [address] * Electrolytes (06/30/2017 6:05 AM PROCESS COORDINATOR) Sodium 142 135 - 148 meq/L [facility] Potassium 3.8 3.6 - 5.5 meq/L [facility] Chloride 101 98 - 106 meq/L [facility] CO2 25 20 - 29 meq/L [facility] Specimen Blood Performing Organization Address [facility] Phone Number [facility] [place] [address] [facility] [place] [address] after 03/03/2017 Insurance Payer Benefit Subscriber ID Type Phone Address Plan / Group AETNA - MGD CARE AETNA HMO xxxxxxxxxx HMO/POS POS QPOS Advance Directives For more information, please contact: [facility] [address] [place] [address] Date Inactivated Comments Code Status Date Activated 11/10/2017 2:08 PM Full Code 11/10/2017 6:39 AM This code status was determined by: Patient 08/08/2017 7:42 PM Full Code 08/02/2017 9:13 PM This code status was determined by: Patient 06/30/2017 10:32 AM Full Code 06/30/2017 5:40 AM This code status was determined by: Patient
--- NOTE | 2018-03-07 09:20 | Diagnostic Imaging Report ---
Exam: Tunneled right IJ central line placement. History: Patient with renal insufficiency in need of long-term IV antibiotics. Comparison: None available Findings: Preliminary ultrasound of the right internal jugular vein shows patency. Sterile preparation and local anesthesia with 1% Xylocaine in the right neck and chest was accomplished. Puncture of the right internal jugular vein with a 21-gauge skinny needle followed x 0.018 " wire and a micropuncture sheath was accomplished. Attention was then directed to the right chest. Appropriate insertion site for the start of a tunnel to the IJ puncture site was determined. A 5 Greenlandic single lumen Dacron cuffed PICC line was then tunneled to the puncture site. The PICC line was trimmed to appropriate length and placed through a peel-away sheath. Tip is localized to the right atrium. Insertion site incision was closed with a single 4-0 Vicryl and Dermabond. A 4-0 Vicryl pursestring suture was placed around the catheter at the insertion into the tunnel. The line flushes and aspirates well and is okay for immediate use. Fluoroscopy time: 0.5 minutes Total dose: 163.3 cGycm2 Impression: Successful right IJ central line placement utilizing ultrasound for venous access and fluoroscopy for placement. Signed by: Dr. Freddie Sheldon DO on 03/04/2018 10:21 AM
== END | disposition home or self-care (01) ==
LOC: CATH LAB 03-03 08:19 → EDSTATUS 03-03 11:00 → CATH LAB 08:29
PROVIDERS: ATTEND Internal Medicine Infectious Disease
DX: M86.071 Acute hematogenous osteomyelitis, right ankle and foot (principal); N28.9 Disorder of kidney and ureter, unspecified; E11.9 Type 2 diabetes mellitus without complications; Z79.4 Long term (current) use of insulin; Z79.82 Long term (current) use of aspirin; Z88.1 Allergy status to other antibiotic agents; Z88.3 Allergy status to other anti-infective agents; Z88.0 Allergy status to penicillin; Z87.891 Personal history of nicotine dependence; Z95.1 Presence of aortocoronary bypass graft; Z87.442 Personal history of urinary calculi
CPT/HCPCS: 36558; J2001; J7040; 36569; C1769; J2250